=== PATIENT | male | born 1990 | race Caucasian/White ===

== ENCOUNTER 2016-10-30 20:22 | Emergency (ER) | payer SELFPAY ==
[~2016-10-30] VITALS: Ht 188 cm; Wt 78.0 kg
[2016-10-30 20:24] VITALS: BP 126/77; PULSE 106; RESP 15; TEMP 97.7; O2SAT 99
[2016-10-30] MEDS ORDERED: LIDOCAINE 1%/EPINEPHrine 1:100,000 SOLN 20 ML VIAL ONE (21:17)
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
[2016-10-30] MEDS ORDERED: LIDOCAINE 1%/EPINEPHrine 1:100,000 SOLN 20 ML VIAL INFIL ONE (22:00)
--- NOTE | 2016-10-30 22:24 | RADRPT ---
EXAM DATE/TIME: 10/30/2016 21:33 [facility] COMPARISON: No previous studies available for comparison. INDICATIONS : Right forearm laceration. Impact to glass. MEDICAL HISTORY : None. SURGICAL HISTORY : None. ENCOUNTER: Initial ACUITY: 1 day PAIN SCORE: 5/10 LOCATION: Right middle forearm FINDINGS: Focal soft tissue swelling is identified along the medial aspect of the midforearm. The underlying je[place] structures are intact. There is no evidence of radiopaque foreign body. CONCLUSION: Soft tissue swelling without evidence of acute bony abnormality or radiopaque foreign body. Kris Hughes MD on October 30, 2016 at 22:22 Board Certified Radiologist. This report was verified electronically.
== END 2016-10-30 22:45 | disposition home or self-care (01) ==
LOC: NEPB 20:22
DX: S51.811A Laceration without foreign body of right forearm, initial encounter (principal); F10.20 Alcohol dependence, uncomplicated; F17.210 Nicotine dependence, cigarettes, uncomplicated; F15.10 Other stimulant abuse, uncomplicated; F13.10 Sedative, hypnotic or anxiolytic abuse, uncomplicated
CPT/HCPCS: 12002; 73090

== ENCOUNTER 2016-11-04 15:56 | Inpatient (IN) | payer SELFPAY ==
[~2016-11-04] VITALS: Ht 188 cm; Wt 84.0 kg
[2016-11-04] VITALS (7 sets, daily range): BP systolic 123–155; BP diastolic 61–95; PULSE 86–127; RESP 16–24; TEMP 97.8–98.6; O2SAT 95–99
[2016-11-04] MEDS ORDERED: SODIUM CHLORIDE 0.9% FLUSH 5 ML FLUSH IVF PRN (16:15)
[2016-11-04] MEDS ORDERED: SODIUM CHLOR 0.9% 1000 ML INJ 1,000 ML IV ONE (16:15)
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
[2016-11-04 16:41] LABS: AUTOMATED NEUTROPHIL # 11.3 TH/MM3 (1.8-7.7); BASOPHIL % 0.3 % (0.0-2.0); EOSINOPHIL % 0.1 % (0.0-4.0); HEMATOCRIT 39.4 % (39.0-51.0); HEMO FLAGS DIFF FINAL; LYMPH % 4.3 % (9.0-44.0); LYMPHOCYTE # 0.5 TH/MM3 (1.0-4.8); MEAN CELL VOLUME 99.5 FL (80.0-100.0); MEAN CORPUSCULAR HEMOGLOBIN 34.3 PG (27.0-34.0); MEAN CORPUSCULAR HGB CONC 34.4 % (32.0-36.0); MONO % 4.6 % (0.0-8.0); NEUT % 90.7 % (16.0-70.0); PLATELET COUNT 118 TH/MM3 (150-450); RED BLOOD COUNT 3.96 MIL/MM3 (4.50-5.90); RED CELL DISTRIBUTION WIDTH 13.4 % (11.6-17.2); WHITE BLOOD COUNT 12.4 TH/MM3 (4.0-11.0)
[2016-11-04 17:03] LABS: AMPHETAMINE, URINE NEG (NEG); BARBITURATES, URINE NEG (NEG); COCAINE, URINE NEG (NEG)
[2016-11-04 17:03] LABS: ALT (GPT) 53 U/L (12-78); ANION GAP 21 MEQ/L (5-15); AST (GOT) 66 U/L (15-37); BICARBONATE 14.9 MEQ/L (21.0-32.0); BLOOD UREA NITROGEN 10 MG/DL (7-18); CHLORIDE 103 MEQ/L (98-107); GLOMERULAR FILTRATION RATE 67 ML/MIN (>89); POTASSIUM 3.7 MEQ/L (3.5-5.1); SODIUM (NA) 139 MEQ/L (136-145)
[2016-11-04 17:06] LABS: ALKALINE PHOSPHATASE 63 U/L (45-117); TOTAL BILIRUBIN ADULT 0.5 MG/DL (0.2-1.0)
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
[2016-11-04] MEDS ORDERED: NALOXONE HCL 0.4 MG/ML AMP IV PRN (17:45)
[2016-11-04] MEDS ORDERED: FLUMAZENIL 0.5 MG/5 ML VIAL IV PUSH PRN (17:45)
[2016-11-04] MEDS ORDERED: LORazepam 2 MG/ML VIAL IV PUSH PRN ×3 (17:45)
[2016-11-04] MEDS ORDERED: SODIUM CHLORIDE 0.9% FLUSH 5 ML FLUSH FLUSH PRN (17:45)
[2016-11-04] MEDS ORDERED: LORazepam 2 MG TAB PO PRN (17:45)
[2016-11-04 17:57] LABS: BLOOD GAS BASE EXCESS -3.5 mmol/L (-2-2); BLOOD GAS CARBOXYHEMOGLOBIN 1.7 % (0-4); BLOOD GAS HCO3 21 mmol/L (22-26); BLOOD GAS METHEMOGLOBIN 1.8 % (0-2); BLOOD GAS O2 HGB SATURATION 95 % (90-100); BLOOD GAS PCO2 37 mmHg (38-42); BLOOD GAS PO2 96 mmHG (61-120); BLOOD GAS TOTAL HGB 12.7 G/DL (12.0-16.0); CRITICAL VALUE NO; TEMP CORR TO 98.6
[2016-11-04 17:58] LABS: DRAW SITE RT RADIAL; FIO2 21 %; NUMBER OF ARTERIAL PUNCTURES 1; STAT YES; ULNAR PULSE PRESENT
[2016-11-04] MEDS: LORazepam 2 MG/ML VIAL IV PUSH PRN ×3 (18:25→22:17)
[2016-11-04] MEDS: SODIUM CHLOR 0.9% 1000 ML INJ 1,000 ML IV SCH (18:31)
--- NOTE | 2016-11-04 19:00 | HHI.HP ---
[facility] Service [facility] Primary Care Physician No Primary Care Physician Admission Diagnosis alcohol withdrawal seizures Diagnoses: Chief Complaint: Seizures, alcohol withdrawal Travel History International Travel<30 Days: No Contact w/Intl Traveler <30 Da: No Traveled to Known Affected Are: No History of Present Illness Patient is a 26-year-old male with no significant primary medical history except for previous trauma in 2015, head injury in 2016 secondary to skateboarding accident he incurred a left temporal lobe hematoma with no acute hemorrhage. He was brought in by ambulance after having seizures 2. EMS was called and when they arrived he was initially post ictal, then had a return to normal mental status, then had another seizure that was witnessed by EMS. They reported a generalized tonic-clonic seizure that lasted about 15 minutes. They administered 2 mg of IM Ativan followed by 4 mg of IV Ativan after an IV was established. Upon arrival to the ED patient was awake but drowsy. Patient seen. Mother at the bedside. Patient was reports to be at the convenience store buying alcohol with friends, when he felt sweaty, "antisocial " doesn't want to talk to anyone, then states he blacked out. States he woke up in an ambulance. He is unable to remember what happened in between. States his last drink was yesterday. Admits to drinking every day average 8-12 beers, but reports binge drinking often. Patient and mother states that he had prior seizure 2 months ago. He fell and was witnessed by his sister, when EMS was called the patient was already back to his normal self and did not go to the hospital. He has not seen her follow-up with anyone after that incident. Reports he has occasional tremors when he does not drink alcohol in the tremors would go away after drinking. Occasional nausea, vomiting also reported associated with alcohol use. Complaints of left-sided lower back pain, nonradiating, comes and goes, states very comfortable. Complaints of abdominal pain, discomfort on exam. Denies trauma to the head with a seizure today, mother states that somebody was able to hold his head to avoid hitting the ground. Denies SOB/ dyspnea. Denies chest pain, palpitations, headaches, dizziness. Denies fevers, chills. CT of the head showed normal examination. CBC WBC 12.4, hemoglobin 13.6, hematocrit 39.4, platelets 118, neutrophils 90.7% . Possibly reactive. CMP is remarkable for bicarbonate 14.9, anion gap 21. Lactic acidosis likely secondary to seizure Urine drug screen is positive for cannabinoids, negative for all other drugs tested. Alcohol level 4 Review of Systems Except as stated in HPI: all other systems reviewed are Neg Past Family Social History Past Medical History Trauma 2014 with multiple right-sided facial fractures involving orbit, zygomatic arches, and maxilla Head injury 2016 Left temporal hematoma Past Surgical History Facial fracture surgery Reported Medications None Allergies: Coded Allergies: No Known Allergies (Verified , 11/04/16) Active Ordered Medications Current Medications Medications (Trade) Dose Ordered Sig/Omer Route Start Time Stop Time Status Last Admin (NS 1000 ml Inj) 1,000 ml @ 100 mls/hr Q10H IV 11/04/16 17:43 (NS Flush) 2 ml UNSCH PRN FLUSH 11/04/16 17:45 (NS Flush) 2 ml BID FLUSH 11/04/16 21:00 (Narcan Inj) 0.4 mg UNSCH PRN IV 11/04/16 17:45 (Romazicon Inj) 0.2 mg Q1M PRN IV PUSH 11/04/16 17:45 (Ativan) 1 mg Q4H PRN PO 11/04/16 17:45 (Ativan Inj) 1 mg Q4H PRN IV PUSH 11/04/16 17:45 (Ativan) 2 mg Q2H PRN PO 11/04/16 17:45 (Ativan Inj) 2 mg Q2H PRN IV PUSH 11/04/16 17:45 (Ativan Inj) 2 mg Q1H PRN IV PUSH 11/04/16 17:45 (Ativan Inj) 2 mg Q15M PRN IV PUSH 11/04/16 17:45 Family History Biological father seizures secondary to cocaine use Social History Current alcohol use 8-12 beers, binge drinking Tobacco use one third pack per day, also current chewing tobacco 3 years Illicit drug use marijuana Physical Exam Vital Signs Vital Signs Date Time Temp Pulse Resp B/P Pulse Ox O2 Delivery O2 Flow Rate FiO2 11/04/16 16:46 95 16 123/61 97 Room Air 11/04/16 16:12 103 18 139/74 97 Room Air 11/04/16 16:02 97.8 100 16 139/74 95 Physical Exam GENERAL: This is a well-nourished, well-developed patient, anxious. SKIN: Multiple abrasions bilateral lower extremity, right lower extremity, left knee, left upper arm. Right upper arm with suture CDI. HEAD: Atraumatic. Normocephalic. No temporal or scalp tenderness. EYES: Pupils equal round and reactive. Extraocular motions intact. No scleral icterus. No injection or drainage. ENT: Nose without bleeding. Throat without erythema. Uvula midline. Airway patent. NECK: Trachea midline. No JVD or lymphadenopathy. Supple, nontender, no meningeal signs. CARDIOVASCULAR: Tachycardia without murmurs, gallops, or rubs. RESPIRATORY: Clear to auscultation. Breath sounds equal bilaterally. No wheezes , rales, or rhonchi. GASTROINTESTINAL: Abdomen soft, non-tender, nondistended. BS active x4 MUSCULOSKELETAL: Extremities without clubbing, cyanosis, or edema. No joint tenderness, effusion, or edema noted. DTR + NEUROLOGICAL: Awake and alert. Oriented 3. Anxious. Tremors are all upper extremity noted. Motor and sensory grossly within normal limits. Normal speech. Laboratory Laboratory Tests Test 11/04/16 11/04/16 11/04/16 16:25 16:35 17:47 White Blood Count 12.4 Red Blood Count 3.96 Hemoglobin 13.6 Hematocrit 39.4 Mean Corpuscular Volume 99.5 Mean Corpuscular Hemoglobin 34.3 Mean Corpuscular Hemoglobin 34.4 Concent Red Cell Distribution Width 13.4 Platelet Count 118 Mean Platelet Volume 9.6 Neutrophils (%) (Auto) 90.7 Lymphocytes (%) (Auto) 4.3 Monocytes (%) (Auto) 4.6 Eosinophils (%) (Auto) 0.1 Basophils (%) (Auto) 0.3 Neutrophils # (Auto) 11.3 Lymphocytes # (Auto) 0.5 Monocytes # (Auto) 0.6 Eosinophils # (Auto) 0.0 Basophils # (Auto) 0.0 CBC Comment DIFF FINAL Differential Comment Sodium Level 139 Potassium Level 3.7 Chloride Level 103 Carbon Dioxide Level 14.9 Anion Gap 21 Blood Urea Nitrogen 10 Creatinine 1.30 Estimat Glomerular Filtration 67 Rate Random Glucose 205 Calcium Level 8.2 Total Bilirubin 0.5 Aspartate Amino Transf 66 (AST/SGOT) Alanine Aminotransferase 53 (ALT/SGPT) Alkaline Phosphatase 63 Total Protein 7.4 Albumin 4.0 Ethyl Alcohol Level 4 Urine Opiates Screen NEG Urine Barbiturates Screen NEG Urine Amphetamines Screen NEG Urine Benzodiazepines Screen NEG Urine Cocaine Screen NEG Urine Cannabinoids Screen POS Blood Gas Puncture Site RT RADIAL Blood Gas Patient Temperature 98.6 Blood Gas HCO3 21 Blood Gas Base Excess -3.5 Blood Gas Oxygen Saturation 95 Arterial Blood pH 7.37 Arterial Blood Partial 37 Pressure CO2 Arterial Blood Partial 96 Pressure O2 Arterial Blood Oxygen Content 17.0 Arterial Blood 1.7 Carboxyhemoglobin Arterial Blood Methemoglobin 1.8 Blood Gas Hemoglobin 12.7 Blood Gas Inspired Oxygen 21 Result Diagram: 11/04/16 1625 11/04/16 1625 Imaging Last Impressions Head CT 11/04/16 0000 Signed Impressions: Service Date/Time: Friday, November 04, 2016 16:54 - CONCLUSION: Normal examination. Castillo Caro MD Assessment and Plan Problem List: (1) Alcohol withdrawal seizure ICD Code: F10.239 Status: Acute (2) Laceration of right forearm without foreign body ICD Code: S51.811A Status: Acute (3) Tobacco abuse ICD Code: Z72.0 Status: Chronic (4) Alcohol abuse ICD Code: F10.10 Status: Chronic (5) Alcohol use disorder ICD Code: F10.99 Status: Acute Assessment and Plan Patient is a 26-year-old male with no significant primary medical history except for previous trauma in 2015 with multiple facial fractures, head injury in 2016 secondary to skateboarding accident he incurred a left temporal lobe hematoma with no acute hemorrhage. He was brought in by ambulance after having seizures 2. EMS was called and when they arrived he was initially post ictal, then had a return to normal mental status, then had another seizure that was witnessed by EMS. They reported a generalized tonic-clonic seizure that lasted about 15 minutes. They administered 2 mg of IM Ativan followed by 4 mg of IV Ativan after an IV was established. Upon arrival to the ED patient was awake but drowsy. Seizures - possibly secondary to alcohol withdrawal - Neurochecks - Seizure precaution - Consult neurology input appreciated - EEG ordered - Ativan when necessary Tachycardia - also related to alcohol withdrawal. Continue with [facility]WA protocol Alcohol abuse, dependence - Patient counseled. Discussed risk of continued alcohol use. - CIWA protocol - Thiamine and folate - Monitor for withdrawals Tobacco abuse - Patient counseled. - Nicotine patch Substance abuse - check hepatitis panel Left back pain - X-ray pelvis ordered Lactic acidosis, anion gap 21 - Check lactic acid, CPK, hemoglobin A1c, UA - Recheck labs CBC CMP tomorrow Case management - consult for EtOH abuse plan for discharge, possible placement for rehabilitation treatment DVT prop SCDs GI prop pantoprazole Written by Zoey Loyd, acting as scribe for Dr. Torres on 11/04/16 at 18:37. The documentation accurately reflects the work performed [id number] by me on at 18:37. Code Status Full code Discussed Condition With Patient, mother Rebekah, nursing Physician Certification 2 Midnight Certification Type: Admission for Inpatient Services Order for Inpatient Services The services are ordered in accordance with Medicare regulations or non- Medicare payer requirements, as applicable. In the case of services not specified as inpatient-only, they are appropriately provided as inpatient services in accordance with the 2-midnight benchmark. Estimated LOS (days): 2 days is the estimated time the patient will need to remain in the hospital, assuming treatment plan goals are met and no additional complications. Post-Hospital Plan: Not yet determined Problem Qualifiers (1) Alcohol withdrawal seizure: Qualified Code: F10.239 - Alcohol withdrawal seizure, with unspecified complication Zoey Davis Nov 04, 2016 18:59 Robi Torres MD Nov 04, 2016 22:28
--- NOTE | 2016-11-04 19:18 | RADRPT ---
EXAM DATE/TIME: 11/04/2016 18:58 [facility] COMPARISON: PELVIS AP ONLY, February 07, 2015, 21:41. INDICATIONS : Generalized Pelvis pain after fall. MEDICAL HISTORY : Head trauma, ETOH. SURGICAL HISTORY : facial. ENCOUNTER: Initial ACUITY: 1 day PAIN SCORE: 5/10 LOCATION: Pelvis. FINDINGS: A single frontal view of the pelvis demonstrates no evidence of fracture. The bony pelvic ring is in tact. Bony mineralization is normal. The soft tissues are intact. CONCLUSION: No acute disease. Castillo Caro MD on November 04, 2016 at 19:17 Board Certified Radiologist. This report was verified electronically.
[2016-11-04] MEDS ORDERED: IBUPROFEN 600 MG TAB PO ONE (19:30)
[2016-11-04 19:42] LABS: CKMB 1.5 NG/ML (0.5-3.6)
[2016-11-04] MEDS ORDERED: THIAMINE HCL 100 MG TAB PO ONE (20:00)
[2016-11-04] MEDS: PANTOPRAZOLE SOD 40 MG DELAYED RELEASE TAB PO SCH (20:10)
[2016-11-04 20:15] LABS: BLOOD, URINE MOD (NEG); GLUCOSE,URINE 300 mg/dL (NEG); KETONE, URINE 10 mg/dL (NEG); NITRITE,URINE NEG (NEG); PH, URINE 5.5 (5.0-8.5); URINE COLOR LIGHT-YELLOW (YELLW/STRAW)
[2016-11-04 20:22] LABS: COMMENT (UR) CULT NOT INDICATED; CULTURE IF INDICATED CULT NOT INDICATED
[2016-11-04 20:23] LABS: BACTERIA, URINE RARE /hpf; RED BLOOD CELL CAST, URINE 20 /lpf; WHITE BLOOD CELL CAST, URINE 1 /lpf
[2016-11-04] MEDS: SODIUM CHLORIDE 0.9% FLUSH 5 ML FLUSH FLUSH SCH (21:00)
[2016-11-05] VITALS (7 sets, daily range): BP systolic 84–137; BP diastolic 63–88; PULSE 54–85; RESP 16–20; TEMP 96.8–98.9; O2SAT 95–98
[2016-11-05] MEDS: SODIUM CHLOR 0.9% 1000 ML INJ 1,000 ML IV SCH ×2 (03:43→11:01)
[2016-11-05] MEDS: THIAMINE HCL 100 MG TAB PO SCH (08:26)
[2016-11-05] MEDS: PANTOPRAZOLE SOD 40 MG DELAYED RELEASE TAB PO SCH (08:26)
[2016-11-05] MEDS: SODIUM CHLORIDE 0.9% FLUSH 5 ML FLUSH FLUSH SCH ×2 (08:26→20:47)
[2016-11-05 10:06] LABS: AUTOMATED NEUTROPHIL # 5.8 TH/MM3 (1.8-7.7); BASOPHIL % 0.1 % (0.0-2.0); EOSINOPHIL % 0.2 % (0.0-4.0); HEMATOCRIT 37.1 % (39.0-51.0); LYMPH % 5.3 % (9.0-44.0); LYMPHOCYTE # 0.4 TH/MM3 (1.0-4.8); MEAN CELL VOLUME 98.5 FL (80.0-100.0); MEAN CORPUSCULAR HEMOGLOBIN 33.9 PG (27.0-34.0); MEAN CORPUSCULAR HGB CONC 34.4 % (32.0-36.0); MONO % 11.7 % (0.0-8.0); NEUT % 82.7 % (16.0-70.0); PLATELET COUNT 84 TH/MM3 (150-450); RED BLOOD COUNT 3.76 MIL/MM3 (4.50-5.90); RED CELL DISTRIBUTION WIDTH 13.5 % (11.6-17.2)
[2016-11-05 10:13] LABS: HEMO FLAGS AUTO DIFF
[2016-11-05 10:29] LABS: ANION GAP 13 MEQ/L (5-15); AST (GOT) 102 U/L (15-37); BICARBONATE 22.3 MEQ/L (21.0-32.0); BLOOD UREA NITROGEN 6 MG/DL (7-18); CHLORIDE 104 MEQ/L (98-107); GLOMERULAR FILTRATION RATE 75 ML/MIN (>89); POTASSIUM 3.3 MEQ/L (3.5-5.1); SODIUM (NA) 139 MEQ/L (136-145)
[2016-11-05 10:33] LABS: ALKALINE PHOSPHATASE 54 U/L (45-117); ALT (GPT) 51 U/L (12-78); TOTAL BILIRUBIN ADULT 1.1 MG/DL (0.2-1.0)
[2016-11-05 10:42] LABS: PLATELET ESTIMATE SMEAR LOW (NORMAL); PLATELET MORPHOLOGY NORMAL (NORMAL); SCAN/DIFF AUTO DIFF CONFIRMED
[2016-11-05] MEDS ORDERED: POTASSIUM CHLORIDE 10 MEQ CONTROLLED RELEASE TAB PO ONE (10:45)
[2016-11-05] MEDS ORDERED: MAGNESIUM SULFATE 1 GM PREMIX 100 ML IV ONE (10:45)
[2016-11-05] MEDS: levETIRAcetam 500 MG TAB PO SCH ×2 (11:25→20:45)
[2016-11-05] MEDS ORDERED: LEVE500 PO (11:45)
[2016-11-05] MEDS ORDERED: VITA100T2 PO (11:45)
[2016-11-05] MEDS ORDERED: CHLO25CA2 PO (11:45)
--- NOTE | 2016-11-05 12:14 | MB ---
cc: NADINE WANG M.D. DATE OF CONSULTATION: 11/05/2016 REASON FOR CONSULTATION Seizure. HISTORY OF PRESENT ILLNESS Mr. Sampson is a 26-year-old male who states he has a history of head trauma after falling off his skateboard several months ago resulting in a cerebral hemorrhage, who now presents with new onset seizures. In June of 2016 he states he was skateboarding down a bridge and fell forward striking his head. He presented to the emergency room. He had a 1.7 cm hemorrhagic contusion left superior temporal lobe with minimal subarachnoid hemorrhagic component. He states he did not require any neurosurgical intervention. The patient states he does drink alcohol on a daily basis. Yesterday apparently he was drinking alcohol in the morning. He went to the store, felt funny and then had a grand mal seizure in the parking lot of the store. [facility] was called. Apparently, en route to the hospital he had another seizure in the ambulance. He feels back to his baseline state at the present time. He states he has been trying to reduce his alcohol consumption. PAST MEDICAL HISTORY Otherwise unremarkable. No history of meningitis or encephalitis. MEDICATIONS Medications at home: None. Current medications are: 1. Thiamine 100 mg daily. 2. Protonix 40 mg daily. 3. Librium as needed. 4. Narcan p.r.n. 5. Ativan p.r.n. seizure. NEUROLOGIC EXAMINATION VITAL SIGNS: Blood pressure is 134/73, pulse 64, respiratory rate is 18, temperature 97 degrees. Higher cortical functions at this time are normal. Cranial nerves II-XII are normal in detail. Motor exam shows 5/5 strength of all groups in both upper and lower extremities. There is no drift. Fine motor skills within normal limits. Reflexes are symmetric. IMAGING STUDIES CT scan of the brain is normal. LABORATORY DATA The white count is 7000, hemoglobin 12.8, hematocrit 37%, platelets 84,000. Sodium is 139, potassium 3.3, chloride 104, CO2 22.3, the BUN is 6, creatinine 1.18, GFR is 75, glucose 108, calcium is 8.5, AST is 102, ALT 51. Alcohol level was 4. Urine tox screen positive for cannabis. PT 11, INR 1.0. Urinalysis pH is 5.5, specific gravity 1.014, protein is 30, glucose is 300, ketones 10, leukocyte esterase negative. IMPRESSION Generalized tonic-clonic seizure x2. I suspect related to alcohol intake but also possibly related to his hemorrhagic contusion he had back in June. RECOMMENDATION Because he has a history of hemorrhagic contusion which does predispose to seizures, I would recommend starting him on Keppra 500 mg b.i.d. We will also obtain an MRI of the brain, EEG, place him under seizure precautions. I did tell him it was very important to abstain from any alcohol. His mother asked that we consult social insurance adviser to see if there is any type of program that may be of benefit for the patient to withdraw from alcohol. ADDENDUM The patient should not drive for at least 6 months of being seizure-free. MD YOMAIRA Dawkins/MONICA /10:59 AM /12:03 PM
[2016-11-05 12:27] LABS: MAGNESIUM 2.2 MG/DL (1.5-2.5)
[2016-11-05 12:52] LABS: INDIRECT BILIRUBIN 0.8 MG/DL (0.0-0.8); TOTAL BILIRUBIN ADULT 1.1 MG/DL (0.2-1.0)
--- NOTE | 2016-11-05 12:53 | MG ---
cc: NADINE WANG Sex: M Test #[id number] DATE OF STUDY: 11/05/2016 TECHNIQUE 17 channel EEG. DESCRIPTION Background rhythm is a symmetrical alpha rhythm frequency is 8-9 Hz, amplitude is 10-20 microvolts. There is fairly prominent beta activity probably medication effect. Occasional muscle artifact an occasional eye movement artifact is identified. There are no lateralizing features. There are no epileptiform discharges present. Photic stimulation was done in a stepwise fashion with a normal driving response. Hyperventilation was done with no change in background rhythm. INTERPRETATION Normal EEG. MD YOMAIRA Dawkins/MERRILL /12:44 PM /12:46 PM
[2016-11-05 13:07] LABS: CKMB 10.6 NG/ML (0.5-3.6)
[2016-11-05] MEDS ORDERED: GADODIAMIDE PF 287 MG/ML 20 ML VIAL (for RAD MRI) IV ONE (13:20)
--- NOTE | 2016-11-05 13:34 | RADRPT ---
EXAM DATE/TIME: 11/05/2016 13:02 [facility] COMPARISON: CT BRAIN W/O CONTRAST, November 04, 2016, 16:54. INDICATIONS : Seizures. CONTRAST: 16 cc Omniscan (gadodiamide) IV MEDICAL HISTORY : Alcohol withdrawl SURGICAL HISTORY : Facial reconstruction surgery. ENCOUNTER: Initial ACUITY: 1 day PAIN SCORE: 0/10 LOCATION: cranial TECHNIQUE: Multiplanar, multisequence MRI of the brain was performed both prior to and following the administrat ion of paramagnetic contrast. FINDINGS: CEREBRUM: The ventricles are normal. Hippocampi are symmetric. No evidence of midline shift, mass lesion, hemo rrhage or acute infarction. No extraaxial fluid collections are seen. The pituitary gland and supra sellar cistern are normal in configuration. WHITE MATTER: No significant signal abnormalities are seen in the white matter. POSTERIOR FOSSA: The cerebellum and brainstem demonstrate no abnormality. The 4th ventricle is midline. The cerebello pontine angle is unremarkable. The cerebellar tonsils are normal in position. DIFFUSION IMAGING: No focal areas of restricted diffusion are seen. No evidence of acute infarction. EXTRACRANIAL: The visualized portions of the orbits and paranasal sinuses are unremarkable. POST-CONTRAST: No abnormal areas of parenchymal or dural enhancement. No evidence of blood-brain barrier breakdown. CONCLUSION: Negative brain MRI with and without intravenous contrast. No abnormality is identified to explain the patient's seizures. Indra Parsons MD on November 05, 2016 at 13:29 Board Certified Radiologist. This report was verified electronically.
--- NOTE | 2016-11-05 14:25 | EKG ---
Date Performed: 11/04/2016 Time Performed: 16:24:01 PTAGE: 26 years EKG: Sinus rhythm NORMAL ECG Compared to prior tracing no significant change PREVIOUS TRACING : 07/24/2014 03.29 DOCTOR: Cory Carrington Interpretating Date/Time 11/05/2016 14:24:41
[2016-11-05] MEDS: LORazepam 1 MG TAB PO PRN ×2 (16:24→20:45)
[2016-11-05 16:35] LABS: CKMB 9.4 NG/ML (0.5-3.6)
--- NOTE | 2016-11-05 17:23 | HHI.PR ---
Subjective Remarks Patient seen twice today. Initially around 11 AM, subsequently around 2 PM. Patient says he feels back to normal. No more tremors. Patient denies any chest Rubs breath. Objective Vital Signs Date Time Temp Pulse Resp B/P Pulse Ox O2 Delivery O2 Flow Rate FiO2 11/05/16 16:15 97.7 69 16 84/ 98 11/05/16 12:23 96.8 72 18 125/72 98 11/05/16 08:05 97.6 64 18 134/73 98 11/05/16 08:00 63 11/05/16 04:00 97.9 85 20 137/88 98 11/05/16 00:00 98.9 64 18 133/74 95 11/04/16 23:30 86 11/04/16 21:30 98.6 127 24 139/95 95 11/04/16 21:23 96 18 138/80 99 Room Air 11/04/16 20:23 18 11/04/16 19:06 97 Room Air 11/04/16 19:06 101 18 155/95 97 Room Air I/O 11/04/16 11/04/16 11/04/16 11/05/16 11/05/16 11/05/16 07:00 15:00 23:00 07:00 15:00 23:00 Intake Total 120 ml Balance 120 ml Intake Oral 120 ml # Voids 4 2 Result Diagram: 11/05/1691911/05/1620 Objective Remarks GENERAL: Patient sitting up in bed. Appears couple. Alert and oriented 3. SKIN: Warm and dry. HEAD: Normocephalic. EYES: No scleral icterus. No injection or drainage. NECK: Supple, trachea midline. No JVD. CARDIOVASCULAR: Regular rate and rhythm without murmurs, gallops, or rubs. RESPIRATORY: Breath sounds equal bilaterally. No accessory muscle use. GASTROINTESTINAL: Abdomen soft, non-tender, nondistended. MUSCULOSKELETAL: No cyanosis, or edema. BACK: Nontender without obvious deformity. No CVA tenderness. A/P Assessment and Plan Patient is a 26-year-old male with no significant primary medical history except for previous trauma in 2015 with multiple facial fractures, head injury in 2016 secondary to skateboarding accident he incurred a left temporal lobe hematoma with no acute hemorrhage. He was brought in by ambulance after having seizures 2. EMS was called and when they arrived he was initially post ictal, then had a return to normal mental status, then had another seizure that was witnessed by EMS. They reported a generalized tonic-clonic seizure that lasted about 15 minutes. They administered 2 mg of IM Ativan followed by 4 mg of IV Ativan after an IV was established. Upon arrival to the ED patient was awake but drowsy. //Seizures - possibly secondary to alcohol withdrawal - Neurochecks - Seizure precaution - Consult neurology input appreciated - EEG negative. MRI negative. -Continue Keppra, with Librium taper. //Tachycardia -improved with Librium. //Alcohol abuse, dependence - Patient counseled again. Discussed risk of continued alcohol use. - [facility] protocol - Thiamine and folate -11/05. Much improved. Continue Librium. //Tobacco abuse - Patient counseled. - Continue Nicotine patch //Substance abuse - check hepatitis panelstill pending. //Left back pain - X-ray pelvis no acute findings. Ibuprofen if necessary. //Metabolic acidosis, anion gap 21 on admission. Resolved. -Likely in postictal state, however subsequent lactic acid normal. -CK found to be subsequently 3400. //CK elevation 3400. Increased from admission. -Repeat today only slightly better. -Renal function stable We'll continue bicarbonate fluids, recheck tomorrow. //Hypokalemia. Acute. Mild. Replaced. //Thrombocytopenia. Likely secondary to chronic alcoholic hepatitis. No bleeding. We'll continue to monitor. Will need follow-up as outpatient. Again. Stop drinking. //Case management - consult for EtOH abuse plan for discharge, possible placement for rehabilitation treatment. Appreciate assistance. Case management has provided patient with information DVT prop SCDs GI prop pantoprazole Discharge Planning Can likely discharge home tomorrow . He has information for follow-up with dave Jiang provided by case management. If CK improved tomorrow, can discharge home Robi Torres MD Nov 05, 2016 17:23
[2016-11-05] MEDS: POTASSIUM CHLORIDE IV SCH ×3 (18:08)
[2016-11-05] MEDS: SODIUM BICARBONATE IV SCH ×3 (18:08)
[2016-11-05] MEDS: [UNRECOGNIZED DRUG - OTHER] IV SCH ×3 (18:08)
[2016-11-05] MEDS: DEXTROSE 5% IV SCH ×3 (18:08)
[2016-11-06] VITALS (7 sets, daily range): BP systolic 126–145; BP diastolic 70–81; PULSE 62–78; RESP 20–22; TEMP 97.5–98.2; O2SAT 97–99
[2016-11-06] MEDS: LORazepam 1 MG TAB PO PRN ×3 (02:24→20:22)
[2016-11-06] MEDS: DEXTROSE 5% IV SCH ×12 (03:50→20:52)
[2016-11-06] MEDS: SODIUM BICARBONATE IV SCH ×12 (03:50→20:52)
[2016-11-06] MEDS: [UNRECOGNIZED DRUG - OTHER] IV SCH ×12 (03:50→20:52)
[2016-11-06] MEDS: POTASSIUM CHLORIDE IV SCH ×12 (03:50→20:52)
[2016-11-06 08:43] LABS: AUTOMATED NEUTROPHIL # 4.2 TH/MM3 (1.8-7.7); BASOPHIL % 0.2 % (0.0-2.0); EOSINOPHIL % 0.3 % (0.0-4.0); HEMATOCRIT 36.9 % (39.0-51.0); LYMPH % 11.9 % (9.0-44.0); LYMPHOCYTE # 0.7 TH/MM3 (1.0-4.8); MEAN CELL VOLUME 97.3 FL (80.0-100.0); MEAN CORPUSCULAR HEMOGLOBIN 34.2 PG (27.0-34.0); MEAN CORPUSCULAR HGB CONC 35.2 % (32.0-36.0); MONO % 13.8 % (0.0-8.0); NEUT % 73.8 % (16.0-70.0); PLATELET COUNT 81 TH/MM3 (150-450); RED BLOOD COUNT 3.79 MIL/MM3 (4.50-5.90); RED CELL DISTRIBUTION WIDTH 13.6 % (11.6-17.2); WHITE BLOOD COUNT 5.6 TH/MM3 (4.0-11.0)
[2016-11-06 08:45] LABS: HEMO FLAGS AUTO DIFF
[2016-11-06 08:46] LABS: HEMOGLOBIN A1b 0.7 %; HEMOGLOBIN Ao 86.8 %; HEMOGLOBIN F 0.8 %; HEMOGLOBIN LA1C 2.2 %; HEMOGLOBIN P3 3.2 %
[2016-11-06] MEDS: SODIUM CHLORIDE 0.9% FLUSH 5 ML FLUSH FLUSH SCH ×2 (09:00→20:15)
[2016-11-06] MEDS: THIAMINE HCL 100 MG TAB PO SCH (09:01)
[2016-11-06] MEDS: PANTOPRAZOLE SOD 40 MG DELAYED RELEASE TAB PO SCH (09:01)
[2016-11-06] MEDS: levETIRAcetam 500 MG TAB PO SCH ×2 (09:01→20:17)
[2016-11-06 09:20] LABS: PLATELET ESTIMATE SMEAR LOW (NORMAL); PLATELET MORPHOLOGY NORMAL (NORMAL); SCAN/DIFF AUTO DIFF CONFIRMED
[2016-11-06 09:29] LABS: BICARBONATE 29.4 MEQ/L (21.0-32.0); MAGNESIUM 2.3 MG/DL (1.5-2.5); POTASSIUM 3.3 MEQ/L (3.5-5.1)
[2016-11-06 10:07] LABS: CKMB 2.8 NG/ML (0.5-3.6)
[2016-11-06] MEDS ORDERED: SODIUM CHLOR 0.9% 1000 ML INJ 1,000 ML IV ONE (11:00)
[2016-11-06] MEDS ORDERED: POTASSIUM PHOSPHATE INJ 15 MMOL in SODIUM CHLORIDE 0.9% INJ 150 ML IV ONE (12:00)
[2016-11-06] MEDS ORDERED: POTASSIUM PHOSPHATE/SODIUM PHOSPHATE 250 MG TAB PO ONE (15:00)
[2016-11-06] MEDS ORDERED: POTASSIUM CHLORIDE 10 MEQ CONTROLLED RELEASE TAB PO ONE (15:00)
--- NOTE | 2016-11-06 18:50 | HHI.PR ---
Review/Management Diagnosis seizure related to ETOH but also history of temporal lobe contusion in the past rhabdomyolysis from sz. Plan continue keppra d/c etoh ok to dc home from neuro standpoint when ok with medicine service/ no driving for 6 months follow up with me 2 week after discharge. Diagnosis/Plan: Subjective Subjective Comments No acute events reported No sz Active Medications Current Medications Medications (Trade) Dose Ordered Sig/Omer Route Start Time Stop Time Status Last Admin (NS Flush) 2 ml UNSCH PRN FLUSH 11/04/16 17:45 (NS Flush) 2 ml BID FLUSH 11/04/16 21:00 (Narcan Inj) 0.4 mg UNSCH PRN IV 11/04/16 17:45 (Romazicon Inj) 0.2 mg Q1M PRN IV PUSH 11/04/16 17:45 (Ativan) 1 mg Q4H PRN PO 11/04/16 17:45 11/06/16 06:35 (Ativan Inj) 1 mg Q4H PRN IV PUSH 11/04/16 17:45 (Ativan) 2 mg Q2H PRN PO 11/04/16 17:45 (Ativan Inj) 2 mg Q2H PRN IV PUSH 11/04/16 17:45 11/04/16 22:17 (Ativan Inj) 2 mg Q1H PRN IV PUSH 11/04/16 17:45 (Ativan Inj) 2 mg Q15M PRN IV PUSH 11/04/16 17:45 (Vitamin B1) 100 mg DAILY PO 11/05/16 09:00 11/06/16 09:01 (Librium) 25 mg TID PRN PO 11/04/16 18:45 (Protonix) 40 mg DAILY PO 11/04/16 20:00 11/06/16 09:01 Levetriacetam 500 mg 500 mg Q12HR PO 11/05/16 11:00 11/06/16 09:01 (Sodium Bicarbonate 8.4% Inj/KCl Inj/D5W 1000 ml Inj) 1,165 ml @ 250 mls/hr Q4H40M IV 11/05/16 18:00 11/06/16 16:26 Allergies Allergies Coded Allergies No Known Allergies (Verified11/04/16) Exam I&O / VS 11/05/16 11/05/16 11/06/16 15:00 23:00 07:00 Intake Total 120 ml 2316 ml Balance 120 ml 2316 ml Intake Oral 120 ml IV Total 2316 ml # Voids 2 4 2 Vital Signs Date Time Temp Pulse Resp B/P Pulse Ox O2 Delivery O2 Flow Rate FiO2 11/06/16 16:20 98.2 74 22 131/71 99 11/06/16 12:37 97.6 76 22 137/70 98 11/06/16 08:37 98.0 75 22 126/77 98 11/06/16 04:00 98.0 62 20 145/80 99 11/06/16 00:00 97.5 69 20 135/80 97 11/05/16 20:00 98.0 54 20 117/63 97 Exam Comments alert speech normal cn 2-12 normal motor 5/5 bue and ble Objective Radiology Results mri brain normal Micro and Labs Laboratory Tests Test 11/06/16 11/06/16 08:18 14:43 White Blood Count 5.6 Red Blood Count 3.79 Hemoglobin 13.0 Hematocrit 36.9 Mean Corpuscular Volume 97.3 Mean Corpuscular Hemoglobin 34.2 Mean Corpuscular Hemoglobin 35.2 Concent Red Cell Distribution Width 13.6 Platelet Count 81 Mean Platelet Volume 9.0 Neutrophils (%) (Auto) 73.8 Lymphocytes (%) (Auto) 11.9 Monocytes (%) (Auto) 13.8 Eosinophils (%) (Auto) 0.3 Basophils (%) (Auto) 0.2 Neutrophils # (Auto) 4.2 Lymphocytes # (Auto) 0.7 Monocytes # (Auto) 0.8 Eosinophils # (Auto) 0.0 Basophils # (Auto) 0.0 CBC Comment AUTO DIFF Differential Comment AUTO DIFF CONFIRMED Platelet Estimate LOW Platelet Morphology Comment NORMAL Sodium Level 138 Potassium Level 3.3 Chloride Level 101 Carbon Dioxide Level 29.4 Anion Gap 8 Blood Urea Nitrogen 3 Creatinine 0.92 Estimat Glomerular Filtration 100 Rate Random Glucose 111 Calcium Level 8.5 Phosphorus Level 2.0 Magnesium Level 2.3 Total Creatine Kinase 3453 6856 Creatine Kinase MB 2.8 4.0 Creatine Kinase MB % 0.1 0.1 Albumin 3.3 Nikhil Cervantes PhD Nov 06, 2016 18:50
[2016-11-06] MEDS: MELATONIN 5 MG TAB PO PRN (21:52)
--- NOTE | 2016-11-06 23:35 | HHI.PR ---
Subjective Remarks patient seen this morning around 11 AM. Says he feels well. Denies any pain. Objective Vital Signs Date Time Temp Pulse Resp B/P Pulse Ox O2 Delivery O2 Flow Rate FiO2 11/06/16 20:00 97.7 69 20 133/81 98 11/06/16 19:02 78 11/06/16 16:20 98.2 74 22 131/71 99 11/06/16 12:37 97.6 76 22 137/70 98 11/06/16 08:37 98.0 75 22 126/77 98 11/06/16 04:00 98.0 62 20 145/80 99 11/06/16 00:00 97.5 69 20 135/80 97 I/O 11/05/16 11/05/16 11/05/16 11/06/16 11/06/16 11/06/16 07:00 15:00 23:00 07:00 15:00 23:00 Intake Total 120 ml 2316 ml 1668 ml Balance 120 ml 2316 ml 1668 ml Intake Oral 120 ml IV Total 2316 ml 1668 ml # Voids 4 2 4 2 10 # Bowel Movements 2 Result Diagram: 11/06/1618 11/06/16 0818 Objective Remarks GENERAL: Patient sitting up in bed. Appears Comfortable Alert and oriented 3.no appreciable change. SKIN: Warm and dry. HEAD: Normocephalic. EYES: No scleral icterus. No injection or drainage. NECK: Supple, trachea midline. No JVD. CARDIOVASCULAR: Regular rate and rhythm without murmurs, gallops, or rubs. RESPIRATORY: Breath sounds equal bilaterally. No accessory muscle use. GASTROINTESTINAL: Abdomen soft, non-tender, nondistended. MUSCULOSKELETAL: No cyanosis, or edema. BACK: Nontender without obvious deformity. No CVA tenderness. A/P Assessment and Plan Patient is a 26-year-old male with no significant primary medical history except for previous trauma in 2015 with multiple facial fractures, head injury in 2016 secondary to skateboarding accident he incurred a left temporal lobe hematoma with no acute hemorrhage. He was brought in by ambulance after having seizures 2. EMS was called and when they arrived he was initially post ictal, then had a return to normal mental status, then had another seizure that was witnessed by EMS. They reported a generalized tonic-clonic seizure that lasted about 15 minutes. They administered 2 mg of IM Ativan followed by 4 mg of IV Ativan after an IV was established. Upon arrival to the ED patient was awake but drowsy. //Seizures - possibly secondary to alcohol withdrawal - Neurochecks - Seizure precaution - Consult neurology input appreciated - EEG negative. MRI negative. -Continue Keppra, with Librium taper. //Tachycardia -improved with Librium. //Alcohol abuse, dependence - Patient counseled again. Discussed risk of continued alcohol use. - [facility] protocol - Thiamine and folate -11/05. Much improved. Continue Librium. //Tobacco abuse - Patient counseled. - Continue Nicotine patch //Substance abuse - check hepatitis panelstill pending. //Left back pain - X-ray pelvis no acute findings. Ibuprofen if necessary. //Metabolic acidosis, anion gap 21 on admission. Resolved. -Likely in postictal state, however subsequent lactic acid normal. -CK found to be subsequently 3400. //CK elevation over 6000. Increased from admission. -11/06. Increase IV fluids to 250 mL per hour. Continue to monitor. discharge if decreases below 5000. //Hypokalemia. Acute. Mild. Replaced. //Thrombocytopenia. Likely secondary to chronic alcoholic hepatitis. No bleeding. We'll continue to monitor. Will need follow-up as outpatient. Again. Stop drinking. -11/06. Stable. No bleeding. Monitor. //Case management - consult for EtOH abuse plan for discharge, possible placement for rehabilitation treatment. Appreciate assistance. Case management has provided patient with information DVT prop SCDs GI prop pantoprazole Discharge Planning Can likely discharge home tomorrow if CK decreases below 5000. . He has information for follow-up with dave Jiang provided by case management. Robi Torres MD Nov 06, 2016 23:35
[2016-11-07] VITALS: BP 137/77; PULSE 64; RESP 20; TEMP 97.6; O2SAT 98
[2016-11-07] MEDS: LORazepam 1 MG TAB PO PRN (00:47)
[2016-11-07] MEDS: SODIUM BICARBONATE IV SCH ×18 (01:38→23:27)
[2016-11-07] MEDS: POTASSIUM CHLORIDE IV SCH ×18 (01:38→23:27)
[2016-11-07] MEDS: DEXTROSE 5% IV SCH ×18 (01:38→23:27)
[2016-11-07] MEDS: [UNRECOGNIZED DRUG - OTHER] IV SCH ×18 (01:38→23:27)
[2016-11-07 04:00] VITALS: BP 116/63; PULSE 63; RESP 20; TEMP 97.8; O2SAT 100
[2016-11-07] MEDS: PANTOPRAZOLE SOD 40 MG DELAYED RELEASE TAB PO SCH (08:08)
[2016-11-07] MEDS: levETIRAcetam 500 MG TAB PO SCH ×2 (08:08→20:58)
[2016-11-07] MEDS: SODIUM CHLORIDE 0.9% FLUSH 5 ML FLUSH FLUSH SCH ×2 (08:08→20:58)
[2016-11-07] MEDS: THIAMINE HCL 100 MG TAB PO SCH (08:08)
[2016-11-07 08:12] VITALS: BP 132/86; PULSE 85; RESP 20; TEMP 97.1; O2SAT 99
[2016-11-07 10:42] LABS: AUTOMATED NEUTROPHIL # 3.8 TH/MM3 (1.8-7.7); BASOPHIL % 0.3 % (0.0-2.0); EOSINOPHIL # 0.1 TH/MM3 (0-0.4); HEMATOCRIT 38.7 % (39.0-51.0); HEMO FLAGS DIFF FINAL; LYMPH % 11.4 % (9.0-44.0); LYMPHOCYTE # 0.6 TH/MM3 (1.0-4.8); MEAN CELL VOLUME 97.1 FL (80.0-100.0); MEAN CORPUSCULAR HEMOGLOBIN 33.8 PG (27.0-34.0); MEAN CORPUSCULAR HGB CONC 34.8 % (32.0-36.0); MONO % 14.3 % (0.0-8.0); PLATELET COUNT 101 TH/MM3 (150-450); RED BLOOD COUNT 3.98 MIL/MM3 (4.50-5.90); RED CELL DISTRIBUTION WIDTH 13.2 % (11.6-17.2); WHITE BLOOD COUNT 5.3 TH/MM3 (4.0-11.0)
[2016-11-07 11:06] LABS: BICARBONATE 31.3 MEQ/L (21.0-32.0); POTASSIUM 3.7 MEQ/L (3.5-5.1)
[2016-11-07 12:06] VITALS: BP 116/69; PULSE 83; RESP 20; TEMP 98.3; O2SAT 100
[2016-11-07 12:56] LABS: CKMB 5.5 NG/ML (0.5-3.6)
[2016-11-07] MEDS: chlordiazePOXIDE 25 MG CAP PO PRN (14:40)
[2016-11-07 16:05] VITALS: BP 125/82; PULSE 51; RESP 20; TEMP 97.1; O2SAT 100
[2016-11-07 18:30] VITALS: PULSE 54
[2016-11-07] MEDS: MELATONIN 5 MG TAB PO PRN (20:58)
--- NOTE | 2016-11-07 23:45 | HHI.PR ---
Subjective Remarks patient seen today around noon, and again around 2 PM. Says he feels well. Denies any chest pain or shortness of breath. He does say most of his muscles hurt. Objective Vital Signs Date Time Temp Pulse Resp B/P Pulse Ox O2 Delivery O2 Flow Rate FiO2 11/07/16 18:30 54 11/07/16 16:05 97.1 51 20 125/82 100 11/07/16 12:06 98.3 83 20 116/69 100 11/07/16 08:12 97.1 85 20 132/86 99 11/07/16 04:00 97.8 63 20 116/63 100 11/07/16 00:00 97.6 64 20 137/77 98 I/O 11/06/16 11/06/16 11/06/16 11/07/16 11/07/16 11/07/16 07:00 15:00 23:00 07:00 15:00 23:00 Intake Total 2316 ml 1668 ml 1000 ml 2360 ml 840 ml Output Total 1500 ml 900 ml Balance 2316 ml 1668 ml 1000 ml 860 ml -60 ml Intake Oral 360 ml 840 ml IV Total 2316 ml 1668 ml 1000 ml 2000 ml Output Urine Total 1500 ml 900 ml # Voids 2 10 4 # Bowel Movements 2 1 Result Diagram: 11/07/1652 11/07/16951 Objective Remarks GENERAL: Patient sitting up in bed. Appears Comfortable Alert and oriented 3.again, with no appreciable change on exam. SKIN: Warm and dry. HEAD: Normocephalic. EYES: No scleral icterus. No injection or drainage. NECK: Supple, trachea midline. No JVD. CARDIOVASCULAR: Regular rate and rhythm without murmurs, gallops, or rubs. RESPIRATORY: Breath sounds equal bilaterally. No accessory muscle use. GASTROINTESTINAL: Abdomen soft, non-tender, nondistended. MUSCULOSKELETAL: No cyanosis, or edema. BACK: Nontender without obvious deformity. No CVA tenderness. A/P Assessment and Plan Patient is a 26-year-old male with no significant primary medical history except for previous trauma in 2015 with multiple facial fractures, head injury in 2016 secondary to skateboarding accident he incurred a left temporal lobe hematoma with no acute hemorrhage. He was brought in by ambulance after having seizures 2. EMS was called and when they arrived he was initially post ictal, then had a return to normal mental status, then had another seizure that was witnessed by EMS. They reported a generalized tonic-clonic seizure that lasted about 15 minutes. They administered 2 mg of IM Ativan followed by 4 mg of IV Ativan after an IV was established. Upon arrival to the ED patient was awake but drowsy. //Seizures - possibly secondary to alcohol withdrawal - Neurochecks - Seizure precaution - Consult neurology input appreciated - EEG negative. MRI negative. -Continue Keppra, with Librium taper. //Tachycardia -improved with Librium. //Alcohol abuse, dependence - Patient counseled again. Discussed risk of continued alcohol use. - [facility] protocol - Thiamine and folate -11/05. Much improved. Continue Librium. //Tobacco abuse - Patient counseled. - Continue Nicotine patch //Substance abuse - check hepatitis panelstill pending. //Left back pain - X-ray pelvis no acute findings. Ibuprofen if necessary. //Metabolic acidosis, anion gap 21 on admission. Resolved. -Likely in postictal state, however subsequent lactic acid normal. -CK found to be subsequently 3400. //rhabdomyolysis. Acute. Increased from admission.secondary to seizure. -11/06. Increase IV fluids to 250 mL per hour. Continue to monitor. discharge if decreases below 5000. -11/07. CK increased to 16,000. Continue IV fluids with bicarbonate. Expect to improve 7. //Hypokalemia. Acute. Mild. Replaced. //Thrombocytopenia. Likely secondary to chronic alcoholic hepatitis. No bleeding. We'll continue to monitor. Will need follow-up as outpatient. Again. Stop drinking. -11/07. Stable. 100. No bleeding. Monitor. //Case management - consult for EtOH abuse plan for discharge, possible placement for rehabilitation treatment. Appreciate assistance. Case management has provided patient with information DVT prop SCDs GI prop pantoprazole Discharge Planning Can likely discharge home tomorrow if CK decreases below 5000. . He has information for follow-up with dave Jinag provided by case management. Robi Torres MD Nov 07, 2016 23:45
[2016-11-08] VITALS (7 sets, daily range): BP systolic 122–132; BP diastolic 67–80; PULSE 48–80; RESP 18–19; TEMP 97.2–98.4; O2SAT 95–99
[2016-11-08] MEDS: DEXTROSE 5% IV SCH ×12 (06:19→21:56)
[2016-11-08] MEDS: SODIUM BICARBONATE IV SCH ×12 (06:19→21:56)
[2016-11-08] MEDS: POTASSIUM CHLORIDE IV SCH ×12 (06:19→21:56)
[2016-11-08] MEDS: [UNRECOGNIZED DRUG - OTHER] IV SCH ×12 (06:19→21:56)
[2016-11-08] MEDS: chlordiazePOXIDE 25 MG CAP PO PRN ×3 (06:32→20:41)
[2016-11-08 08:11] LABS: AUTOMATED NEUTROPHIL # 3.1 TH/MM3 (1.8-7.7); BASOPHIL % 0.3 % (0.0-2.0); EOSINOPHIL # 0.1 TH/MM3 (0-0.4); EOSINOPHIL % 2.8 % (0.0-4.0); HEMATOCRIT 38.2 % (39.0-51.0); HEMO FLAGS DIFF FINAL; LYMPH % 16.1 % (9.0-44.0); LYMPHOCYTE # 0.8 TH/MM3 (1.0-4.8); MEAN CELL VOLUME 97.7 FL (80.0-100.0); MEAN CORPUSCULAR HEMOGLOBIN 33.9 PG (27.0-34.0); MEAN CORPUSCULAR HGB CONC 34.7 % (32.0-36.0); MONO % 16.8 % (0.0-8.0); PLATELET COUNT 108 TH/MM3 (150-450); RED BLOOD COUNT 3.91 MIL/MM3 (4.50-5.90); RED CELL DISTRIBUTION WIDTH 13.6 % (11.6-17.2); WHITE BLOOD COUNT 4.9 TH/MM3 (4.0-11.0)
[2016-11-08] MEDS: PANTOPRAZOLE SOD 40 MG DELAYED RELEASE TAB PO SCH (08:28)
[2016-11-08] MEDS: SODIUM CHLORIDE 0.9% FLUSH 5 ML FLUSH FLUSH SCH ×2 (08:29→20:35)
[2016-11-08] MEDS: THIAMINE HCL 100 MG TAB PO SCH (08:29)
[2016-11-08] MEDS: levETIRAcetam 500 MG TAB PO SCH ×2 (08:29→20:35)
[2016-11-08 09:15] LABS: BICARBONATE 32.9 MEQ/L (21.0-32.0); MAGNESIUM 1.8 MG/DL (1.5-2.5); POTASSIUM 3.2 MEQ/L (3.5-5.1)
[2016-11-08] MEDS ORDERED: POTASSIUM CHLORIDE 10 MEQ CONTROLLED RELEASE TAB PO ONE (11:00)
[2016-11-08 11:29] LABS: CKMB 4.1 NG/ML (0.5-3.6)
[2016-11-08] MEDS: MELATONIN 5 MG TAB PO PRN (22:01)
--- NOTE | 2016-11-08 23:43 | HHI.PR ---
Subjective Remarks patient seen today around 11 AM. Says he is feeling well. Denies any chest pain or shortness breath. States that muscle aches have gone. Objective Vital Signs Date Time Temp Pulse Resp B/P Pulse Ox O2 Delivery O2 Flow Rate FiO2 11/08/16 16:00 97.2 66 19 125/80 99 11/08/16 12:00 98.4 59 18 125/69 95 11/08/16 08:53 48 11/08/16 08:17 97.4 80 19 124/76 99 11/08/16 04:00 97.9 56 18 122/67 96 11/08/16 01:30 74 11/08/16 00:00 97.2 62 18 132/76 99 I/O 11/07/16 11/07/16 11/07/16 11/08/16 11/08/16 11/08/16 07:00 15:00 23:00 07:00 15:00 23:00 Intake Total 2360 ml 840 ml 800 ml 1698 ml 480 ml 2432 ml Output Total 1500 ml 900 ml 800 ml 3200 ml Balance 860 ml -60 ml 0 ml 1698 ml -2720 ml 2432 ml Intake Oral 360 ml 840 ml 800 ml 480 ml 480 ml IV Total 2000 ml 1218 ml 2432 ml Output Urine Total 1500 ml 900 ml 800 ml 3200 ml # Voids 3 2 # Bowel Movements 1 2 Result Diagram: 11/08/16 0736 11/08/16 0736 Objective Remarks GENERAL: Patient sitting up in Care. Appears Comfortable Alert and oriented 3.again, with no appreciable change on exam. SKIN: Warm and dry. HEAD: Normocephalic. EYES: No scleral icterus. No injection or drainage. NECK: Supple, trachea midline. No JVD. CARDIOVASCULAR: Regular rate and rhythm without murmurs, gallops, or rubs. RESPIRATORY: Breath sounds equal bilaterally. No accessory muscle use. GASTROINTESTINAL: Abdomen soft, non-tender, nondistended. MUSCULOSKELETAL: No cyanosis, or edema. BACK: Nontender without obvious deformity. No CVA tenderness. A/P Assessment and Plan Patient is a 26-year-old male with no significant primary medical history except for previous trauma in 2015 with multiple facial fractures, head injury in 2016 secondary to skateboarding accident he incurred a left temporal lobe hematoma with no acute hemorrhage. He was brought in by ambulance after having seizures 2. EMS was called and when they arrived he was initially post ictal, then had a return to normal mental status, then had another seizure that was witnessed by EMS. They reported a generalized tonic-clonic seizure that lasted about 15 minutes. They administered 2 mg of IM Ativan followed by 4 mg of IV Ativan after an IV was established. Upon arrival to the ED patient was awake but drowsy. //Seizures - possibly secondary to alcohol withdrawal - Neurochecks - Seizure precaution - Consult neurology input appreciated - EEG negative. MRI negative. -Continue Keppra, with Librium taper. //Tachycardia -improved with Librium. //Alcohol abuse, dependence - Patient counseled again. Discussed risk of continued alcohol use. - [facility] protocol - Thiamine and folate -11/05. Much improved. Continue Librium. //Tobacco abuse - Patient counseled. - Continue Nicotine patch //Substance abuse - check hepatitis panelstill pending. //Left back pain - X-ray pelvis no acute findings. Ibuprofen if necessary. //Metabolic acidosis, anion gap 21 on admission. Resolved. -resolved was likely related to seizure. //rhabdomyolysis. Acute. Increased from admission.secondary to seizure. -11/06. Increase IV fluids to 250 mL per hour. Continue to monitor. discharge if decreases below 5000. -11/07. CK increased to 18,000. Continue IV fluids with bicarbonate. Expect to improve 7. -11/08.CK slightly increased to 19,000. May be leveling off. Discussed with Dr Cervantes in neurology. We'll continue to monitor for now, if continues to increase by tomorrow will order further workup. //Hypokalemia. Acute. Mild. Replacedagain.likely this is secondary to large amounts of bicarbonate. We'll continue to monitor. //Thrombocytopenia. Likely secondary to chronic alcoholic hepatitis. No bleeding. We'll continue to monitor. Will need follow-up as outpatient. Again. Stop drinking. -11/07. Stable. 100. No bleeding. Monitor. //Case management - consult for EtOH abuse plan for discharge, possible placement for rehabilitation treatment. Appreciate assistance. Case management has provided patient with information DVT prop SCDs GI prop pantoprazole Discharge Planning postictal rhabdomyolysis. Can discharge home if CK decreases below 5000. . He has information for follow-up with dave Jiang provided by case management. Robi Torres MD Nov 08, 2016 23:43
[2016-11-09] VITALS: BP 119/65; PULSE 50; RESP 20; TEMP 96.6; O2SAT 99
[2016-11-09] MEDS: POTASSIUM CHLORIDE IV SCH ×12 (03:14→21:40)
[2016-11-09] MEDS: DEXTROSE 5% IV SCH ×12 (03:14→21:40)
[2016-11-09] MEDS: SODIUM BICARBONATE IV SCH ×12 (03:14→21:40)
[2016-11-09] MEDS: [UNRECOGNIZED DRUG - OTHER] IV SCH ×12 (03:14→21:40)
[2016-11-09 04:00] VITALS: BP 105/61; PULSE 50; RESP 18; TEMP 96.2; O2SAT 97
[2016-11-09 08:28] LABS: AUTOMATED NEUTROPHIL # 2.3 TH/MM3 (1.8-7.7); BASOPHIL % 0.4 % (0.0-2.0); EOSINOPHIL # 0.2 TH/MM3 (0-0.4); HEMATOCRIT 39.9 % (39.0-51.0); HEMO FLAGS DIFF FINAL; LYMPH % 22.8 % (9.0-44.0); MEAN CELL VOLUME 97.9 FL (80.0-100.0); MEAN CORPUSCULAR HEMOGLOBIN 34.5 PG (27.0-34.0); MEAN CORPUSCULAR HGB CONC 35.3 % (32.0-36.0); NEUT % 51.8 % (16.0-70.0); PLATELET COUNT 129 TH/MM3 (150-450); RED BLOOD COUNT 4.08 MIL/MM3 (4.50-5.90); RED CELL DISTRIBUTION WIDTH 13.4 % (11.6-17.2); WHITE BLOOD COUNT 4.5 TH/MM3 (4.0-11.0)
[2016-11-09] MEDS: SODIUM CHLORIDE 0.9% FLUSH 5 ML FLUSH FLUSH SCH ×2 (08:31→21:00)
[2016-11-09] MEDS: PANTOPRAZOLE SOD 40 MG DELAYED RELEASE TAB PO SCH (08:31)
[2016-11-09] MEDS: levETIRAcetam 500 MG TAB PO SCH ×2 (08:31→21:39)
[2016-11-09] MEDS: THIAMINE HCL 100 MG TAB PO SCH (08:31)
[2016-11-09 08:40] VITALS: BP 124/78; PULSE 71; RESP 18; TEMP 97.1; O2SAT 98
[2016-11-09 09:24] LABS: BICARBONATE 32.6 MEQ/L (21.0-32.0); POTASSIUM 3.6 MEQ/L (3.5-5.1)
[2016-11-09 09:43] LABS: CKMB 1.9 NG/ML (0.5-3.6)
[2016-11-09 12:00] VITALS: BP 128/71; PULSE 49; RESP 18; TEMP 97.8; O2SAT 100
[2016-11-09] MEDS: chlordiazePOXIDE 25 MG CAP PO PRN (13:04)
[2016-11-09 16:00] VITALS: BP 121/58; PULSE 57; RESP 18; TEMP 97.9; O2SAT 98
--- NOTE | 2016-11-09 16:04 | HHI.PR ---
Review/Management Diagnosis seizure related to ETOH but also history of temporal lobe contusion in the past rhabdomyolysis from sz.and binge etoh drinkng----cpk is starting to come down. Plan continue jovi d/c etoh Diagnosis/Plan: Subjective Subjective Comments No acute events reported No seizures He states that prior to admission he was drinking heavily on a daily basis Active Medications Current Medications Medications (Trade) Dose Ordered Sig/Omer Route Start Time Stop Time Status Last Admin (NS Flush) 2 ml UNSCH PRN FLUSH 11/04/16 17:45 (NS Flush) 2 ml BID FLUSH 11/04/16 21:00 11/09/16 08:31 (Narcan Inj) 0.4 mg UNSCH PRN IV 11/04/16 17:45 (Romazicon Inj) 0.2 mg Q1M PRN IV PUSH 11/04/16 17:45 (Ativan) 1 mg Q4H PRN PO 11/04/16 17:45 11/07/16 00:47 (Ativan Inj) 1 mg Q4H PRN IV PUSH 11/04/16 17:45 (Ativan) 2 mg Q2H PRN PO 11/04/16 17:45 (Ativan Inj) 2 mg Q2H PRN IV PUSH 11/04/16 17:45 11/04/16 22:17 (Ativan Inj) 2 mg Q1H PRN IV PUSH 11/04/16 17:45 (Ativan Inj) 2 mg Q15M PRN IV PUSH 11/04/16 17:45 (Vitamin B1) 100 mg DAILY PO 11/05/16 09:00 11/09/16 08:31 (Librium) 25 mg TID PRN PO 11/04/16 18:45 11/09/16 13:04 (Protonix) 40 mg DAILY PO 11/04/16 20:00 11/09/16 08:31 Levetriacetam 500 mg 500 mg Q12HR PO 11/05/16 11:00 11/09/16 08:31 (Sodium Bicarbonate 8.4% Inj/KCl Inj/D5W 1000 ml Inj) 1,165 ml @ 250 mls/hr Q4H40M IV 11/05/16 18:00 11/09/16 14:47 (Melatonin) 5 mg HS PRN PO 11/06/16 19:45 11/08/16 22:01 Allergies Allergies Coded Allergies No Known Allergies (Verified11/04/16) Exam I&O / VS 11/08/16 11/08/16 11/09/16 15:00 23:00 07:00 Intake Total 480 ml 2432 ml 360 ml Output Total 3200 ml Balance -2720 ml 2432 ml 360 ml Intake Oral 480 ml 360 ml IV Total 2432 ml Output Urine Total 3200 ml # Voids 2 3 # Bowel Movements 2 Vital Signs Date Time Temp Pulse Resp B/P Pulse Ox O2 Delivery O2 Flow Rate FiO2 11/09/16 12:00 97.8 49 18 128/71 100 11/09/16 08:40 97.1 71 18 124/78 98 11/09/16 04:00 96.2 50 18 105/61 97 11/09/16 00:00 96.6 50 20 119/65 99 Exam Comments alert speech normal cn 2-12 normal motor 5/5 bue and ble Objective Micro and Labs Laboratory Tests Test 11/09/16 07:23 White Blood Count 4.5 Red Blood Count 4.08 Hemoglobin 14.1 Hematocrit 39.9 Mean Corpuscular Volume 97.9 Mean Corpuscular Hemoglobin 34.5 Mean Corpuscular Hemoglobin 35.3 Concent Red Cell Distribution Width 13.4 Platelet Count 129 Mean Platelet Volume 9.2 Neutrophils (%) (Auto) 51.8 Lymphocytes (%) (Auto) 22.8 Monocytes (%) (Auto) 21.0 Eosinophils (%) (Auto) 4.0 Basophils (%) (Auto) 0.4 Neutrophils # (Auto) 2.3 Lymphocytes # (Auto) 1.0 Monocytes # (Auto) 0.9 Eosinophils # (Auto) 0.2 Basophils # (Auto) 0.0 CBC Comment DIFF FINAL Differential Comment Sodium Level 141 Potassium Level 3.6 Chloride Level 100 Carbon Dioxide Level 32.6 Anion Gap 8 Blood Urea Nitrogen 4 Creatinine 0.84 Estimat Glomerular Filtration 111 Rate Random Glucose 85 Calcium Level 8.7 Phosphorus Level 4.4 Magnesium Level 2.0 Total Creatine Kinase 94097 Creatine Kinase MB 1.9 Creatine Kinase MB % 0.0 Albumin 3.7 Nikhil Cervantes PhD Nov 09, 2016 16:04
--- NOTE | 2016-11-09 18:49 | HHI.PR ---
Subjective Remarks patient seen today around 11 AM. Says he is feeling great. Denies any chest pain or shortness of breath. He says he did have some leg cramps yesterday which are better today. Discussed CPK improving 12,000 today. We'll continue IV fluids, monitoring. Objective Vital Signs Date Time Temp Pulse Resp B/P Pulse Ox O2 Delivery O2 Flow Rate FiO2 11/09/16 16:00 97.9 57 18 121/58 98 11/09/16 12:00 97.8 49 18 128/71 100 11/09/16 08:40 97.1 71 18 124/78 98 11/09/16 04:00 96.2 50 18 105/61 97 11/09/16 00:00 96.6 50 20 119/65 99 I/O 11/08/16 11/08/16 11/08/16 11/09/16 11/09/16 11/09/16 07:00 15:00 23:00 07:00 15:00 23:00 Intake Total 1698 ml 480 ml 2432 ml 360 ml 800 ml Output Total 3200 ml Balance 1698 ml -2720 ml 2432 ml 360 ml 800 ml Intake Oral 480 ml 480 ml 360 ml 800 ml IV Total 1218 ml 2432 ml Output Urine Total 3200 ml # Voids 3 2 3 6 # Bowel Movements 2 Result Diagram: 11/09/1672211/09/16722 Objective Remarks GENERAL: Patient sitting up in Chair. Appears Comfortable Alert and oriented 3.no changes on exam today. SKIN: Warm and dry. HEAD: Normocephalic. EYES: No scleral icterus. No injection or drainage. NECK: Supple, trachea midline. No JVD. CARDIOVASCULAR: Regular rate and rhythm without murmurs, gallops, or rubs. RESPIRATORY: Breath sounds equal bilaterally. No accessory muscle use. GASTROINTESTINAL: Abdomen soft, non-tender, nondistended. MUSCULOSKELETAL: No cyanosis, or edema. BACK: Nontender without obvious deformity. No CVA tenderness. A/P Assessment and Plan Patient is a 26-year-old male with no significant primary medical history except for previous trauma in 2015 with multiple facial fractures, head injury in 2016 secondary to skateboarding accident he incurred a left temporal lobe hematoma with no acute hemorrhage. He was brought in by ambulance after having seizures 2. EMS was called and when they arrived he was initially post ictal, then had a return to normal mental status, then had another seizure that was witnessed by EMS. They reported a generalized tonic-clonic seizure that lasted about 15 minutes. They administered 2 mg of IM Ativan followed by 4 mg of IV Ativan after an IV was established. Upon arrival to the ED patient was awake but drowsy. MRI and EEG negative for acute findings. Patient was to be discharged, however CPK became elevated, max 19,000, however subsequently improving with IV fluids. 11/09. CPK improving 12,000 today. We'll continue IV fluids, monitoring. //Seizures - possibly secondary to alcohol withdrawal - Neurochecks - Seizure precaution - Consult neurology input appreciated - EEG negative. MRI negative. -Continue Keppra, with Librium taper. continue Librium 25 mg 3 times a day while here. //Tachycardia -improved with Librium. //Alcohol abuse, dependence - Patient counseled again. Discussed risk of continued alcohol use. - [facility] protocol - Thiamine and folate -11/05. Much improved. Continue Librium. =stable. Continue Librium. Taper as outpatient. Followup as outpatient. //Tobacco abuse - Patient counseled. - Continue Nicotine patch //Substance abuse - check hepatitis panelstill pending. //Left back pain - X-ray pelvis no acute findings. Ibuprofen if necessary. //Metabolic acidosis, anion gap 21 on admission. Resolved. -resolved was likely related to seizure. //rhabdomyolysis. Acute. Increased from admission.secondary to seizure. -11/06. Increase IV fluids to 250 mL per hour. Continue to monitor. discharge if decreases below 5000. -11/07. CK increased to 18,000. Continue IV fluids with bicarbonate. Expect to improve 7. -11/08.CK slightly increased to 19,000. May be leveling off. Discussed with Dr Cervantes in neurology. We'll continue to monitor for now, if continues to increase by tomorrow will order further workup. //Hypokalemia. Acute. Mild. Replacedagain.likely this is secondary to large amounts of bicarbonate. We'll continue to monitor. //Thrombocytopenia. Likely secondary to chronic alcoholic hepatitis. No bleeding. We'll continue to monitor. Will need follow-up as outpatient. Again. Stop drinking. -11/07. Stable. 100. No bleeding. Monitor. //Case management - consult for EtOH abuse plan for discharge, possible placement for rehabilitation treatment. Appreciate assistance. Case management has provided patient with information DVT prop SCDs GI prop pantoprazole Discharge Planning postictal rhabdomyolysis. Can discharge home if CK decreases below 5000. . He has information for follow-up with dave Jiang provided by case management. Robi Torres MD Nov 09, 2016 18:49
[2016-11-09 20:00] VITALS: BP 131/69; PULSE 54; RESP 20; TEMP 97.7; O2SAT 98
[2016-11-10] VITALS (7 sets, daily range): BP systolic 107–148; BP diastolic 54–91; PULSE 51–96; RESP 18–26; TEMP 96.8–98.2; O2SAT 97–100
[2016-11-10] MEDS: SODIUM BICARBONATE IV SCH ×15 (02:06→20:57)
[2016-11-10] MEDS: DEXTROSE 5% IV SCH ×15 (02:06→20:57)
[2016-11-10] MEDS: POTASSIUM CHLORIDE IV SCH ×15 (02:06→20:57)
[2016-11-10] MEDS: [UNRECOGNIZED DRUG - OTHER] IV SCH ×15 (02:06→20:57)
[2016-11-10 09:16] LABS: AUTOMATED NEUTROPHIL # 2.4 TH/MM3 (1.8-7.7); BASOPHIL % 0.6 % (0.0-2.0); EOSINOPHIL # 0.1 TH/MM3 (0-0.4); EOSINOPHIL % 3.1 % (0.0-4.0); HEMATOCRIT 37.3 % (39.0-51.0); HEMO FLAGS DIFF FINAL; LYMPH % 23.2 % (9.0-44.0); LYMPHOCYTE # 1.1 TH/MM3 (1.0-4.8); MEAN CELL VOLUME 98.8 FL (80.0-100.0); MEAN CORPUSCULAR HEMOGLOBIN 34.4 PG (27.0-34.0); MEAN CORPUSCULAR HGB CONC 34.8 % (32.0-36.0); MONO % 20.3 % (0.0-8.0); NEUT % 52.8 % (16.0-70.0); PLATELET COUNT 132 TH/MM3 (150-450); RED BLOOD COUNT 3.77 MIL/MM3 (4.50-5.90); RED CELL DISTRIBUTION WIDTH 13.5 % (11.6-17.2); WHITE BLOOD COUNT 4.5 TH/MM3 (4.0-11.0)
[2016-11-10] MEDS: SODIUM CHLORIDE 0.9% FLUSH 5 ML FLUSH FLUSH SCH ×2 (09:52→20:58)
[2016-11-10] MEDS: chlordiazePOXIDE 25 MG CAP PO SCH ×3 (09:52→18:10)
[2016-11-10] MEDS: PANTOPRAZOLE SOD 40 MG DELAYED RELEASE TAB PO SCH (09:52)
[2016-11-10] MEDS: levETIRAcetam 500 MG TAB PO SCH ×2 (09:52→20:59)
[2016-11-10] MEDS: THIAMINE HCL 100 MG TAB PO SCH (09:52)
[2016-11-10 10:04] LABS: BICARBONATE 29.4 MEQ/L (21.0-32.0); MAGNESIUM 1.9 MG/DL (1.5-2.5); POTASSIUM 3.5 MEQ/L (3.5-5.1)
[2016-11-10 10:25] LABS: CKMB 1.2 NG/ML (0.5-3.6)
[2016-11-10 13:56] LABS: CKMB 1.3 NG/ML (0.5-3.6)
[2016-11-10 21:12] LABS: MEAN CORPUSCULAR HGB CONC 36.7 % (32.0-36.0)
--- NOTE | 2016-11-10 22:28 | HHI.PR ---
Subjective Remarks patient seen today around 11 AM. Patient says he feels well. No complaints. No muscle pain. Discussed with patient that we might be able to let him go home if CPK is below 5000. We ordered a repeat today, still over 5000. Objective Vital Signs Date Time Temp Pulse Resp B/P Pulse Ox O2 Delivery O2 Flow Rate FiO2 11/10/16 20:00 97.2 96 26 148/91 99 11/10/16 16:49 98.2 70 19 136/68 99 11/10/16 12:42 97.8 59 20 129/62 98 11/10/16 09:40 51 11/10/16 08:00 96.8 63 19 135/74 98 11/10/16 05:31 97.5 60 18 107/54 100 11/10/16 00:13 97.6 60 20 127/75 97 I/O 11/09/16 11/09/16 11/09/16 11/10/16 11/10/16 11/10/16 07:00 15:00 23:00 07:00 15:00 23:00 Intake Total 360 ml 800 ml 720 ml 1943 ml Output Total 700 ml Balance 360 ml 800 ml 720 ml 1243 ml Intake Oral 360 ml 800 ml 720 ml 680 ml IV Total 1263 ml Output Urine Total 700 ml # Voids 3 6 2 # Bowel Movements 0 3 Result Diagram: 11/10/16 0807 11/10/16 0801 Objective Remarks GENERAL: Patient sitting up on edge of bed. Appears Comfortable Alert and oriented 3.no changes on exam today. SKIN: Warm and dry. HEAD: Normocephalic. EYES: No scleral icterus. No injection or drainage. NECK: Supple, trachea midline. No JVD. CARDIOVASCULAR: Regular rate and rhythm without murmurs, gallops, or rubs. RESPIRATORY: Breath sounds equal bilaterally. No accessory muscle use. GASTROINTESTINAL: Abdomen soft, non-tender, nondistended. MUSCULOSKELETAL: No cyanosis, or edema. BACK: Nontender without obvious deformity. No CVA tenderness. A/P Assessment and Plan Patient is a 26-year-old male with no significant primary medical history except for previous trauma in 2015 with multiple facial fractures, head injury in 2016 secondary to skateboarding accident he incurred a left temporal lobe hematoma with no acute hemorrhage. He was brought in by ambulance after having seizures 2. EMS was called and when they arrived he was initially post ictal, then had a return to normal mental status, then had another seizure that was witnessed by EMS. They reported a generalized tonic-clonic seizure that lasted about 15 minutes. They administered 2 mg of IM Ativan followed by 4 mg of IV Ativan after an IV was established. Upon arrival to the ED patient was awake but drowsy. MRI and EEG negative for acute findings. Patient was to be discharged, however CPK became elevated, max 19,000, however subsequently improving with IV fluids. 11/10. CPK improving 6200, 6060. Repeat timed for 4 AM. Should return around 8 AM. Patient can discharge home tomorrow morning if below 5000. We'll follow up with Dr. Frerie in clinic. //Seizures - possibly secondary to alcohol withdrawal - Neurochecks - Seizure precaution - Consult neurology input appreciated - EEG negative. MRI negative. -Continue Keppra, with Librium taper. continue Librium 25 mg 3 times a day while here. //Tachycardia -improved with Librium. //Alcohol abuse, dependence - Patient counseled again. Discussed risk of continued alcohol use. - [facility] protocol - Thiamine and folate -11/05. Much improved. Continue Librium. =stable. Continue Librium. Taper as outpatient. Followup as outpatient. //Tobacco abuse - Patient counseled. - Continue Nicotine patch //Substance abuse - check hepatitis panelstill pending. //Left back pain - X-ray pelvis no acute findings. Ibuprofen if necessary. //Metabolic acidosis, anion gap 21 on admission. Resolved. -resolved was likely related to seizure. //rhabdomyolysis. Acute. Increased from admission.secondary to seizure. -11/06. Increase IV fluids to 250 mL per hour. Continue to monitor. discharge if decreases below 5000. -11/07. CK increased to 18,000. Continue IV fluids with bicarbonate. Expect to improve 7. -11/08.CK slightly increased to 19,000. May be leveling off. Discussed with Dr Cervantes in neurology. We'll continue to monitor for now, if continues to increase by tomorrow will order further workup. //Hypokalemia. Acute. Mild. Replacedagain.likely this is secondary to large amounts of bicarbonate. We'll continue to monitor. //Thrombocytopenia. Likely secondary to chronic alcoholic hepatitis. No bleeding. We'll continue to monitor. Will need follow-up as outpatient. Again. Stop drinking. -11/07. Stable. 100. No bleeding. Monitor. //Case management - consult for EtOH abuse plan for discharge, possible placement for rehabilitation treatment. Appreciate assistance. Case management has provided patient with information DVT prop SCDs GI prop pantoprazole Discharge Planning postictal rhabdomyolysis. Can discharge home if CK decreases below 5000. . He has information for follow-up with dave Jiang provided by case management. Robi Torres MD Nov 10, 2016 22:28
[2016-11-11] VITALS: BP 121/60; PULSE 96; RESP 22; TEMP 97.1; O2SAT 100
[2016-11-11] MEDS: [UNRECOGNIZED DRUG - OTHER] IV SCH ×6 (01:26→06:06)
[2016-11-11] MEDS: DEXTROSE 5% IV SCH ×6 (01:26→06:06)
[2016-11-11] MEDS: SODIUM BICARBONATE IV SCH ×6 (01:26→06:06)
[2016-11-11] MEDS: POTASSIUM CHLORIDE IV SCH ×6 (01:26→06:06)
[2016-11-11 04:00] VITALS: BP 120/70; PULSE 88; RESP 18; TEMP 98.7; O2SAT 100
[2016-11-11 04:12] LABS: AUTOMATED NEUTROPHIL # 2.6 TH/MM3 (1.8-7.7); BASOPHIL % 0.6 % (0.0-2.0); EOSINOPHIL # 0.1 TH/MM3 (0-0.4); EOSINOPHIL % 2.7 % (0.0-4.0); HEMATOCRIT 35.8 % (39.0-51.0); LYMPH % 25.8 % (9.0-44.0); LYMPHOCYTE # 1.3 TH/MM3 (1.0-4.8); MEAN CELL VOLUME 97.5 FL (80.0-100.0); MEAN CORPUSCULAR HEMOGLOBIN 35.8 PG (27.0-34.0); MONO % 16.8 % (0.0-8.0); NEUT % 54.1 % (16.0-70.0); PLATELET COUNT 140 TH/MM3 (150-450); RED BLOOD COUNT 3.67 MIL/MM3 (4.50-5.90); RED CELL DISTRIBUTION WIDTH 13.5 % (11.6-17.2); WHITE BLOOD COUNT 4.9 TH/MM3 (4.0-11.0)
[2016-11-11 04:16] LABS: HEMO FLAGS AUTO DIFF
[2016-11-11 04:46] LABS: BICARBONATE 30.6 MEQ/L (21.0-32.0); POTASSIUM 3.7 MEQ/L (3.5-5.1)
[2016-11-11 05:24] LABS: CKMB 0.9 NG/ML (0.5-3.6)
[2016-11-11 08:00] VITALS: BP 136/81; PULSE 62; RESP 18; TEMP 97.1; O2SAT 100
[2016-11-11] MEDS: PANTOPRAZOLE SOD 40 MG DELAYED RELEASE TAB PO SCH (08:37)
[2016-11-11] MEDS: THIAMINE HCL 100 MG TAB PO SCH (08:37)
[2016-11-11] MEDS: levETIRAcetam 500 MG TAB PO SCH (08:37)
[2016-11-11] MEDS: chlordiazePOXIDE 25 MG CAP PO SCH (08:37)
--- NOTE | 2016-11-11 09:05 | HHI.PR ---
Subjective Remarks Patient seen and examined this am. Vitals stable afebrile. Tolerating diet. Ambulatory without issues. No overnight events. Denies CP or difficulty breathing. Is anxious to go home. (Renetta Wheeler MD R3) Objective Vital Signs Date Time Temp Pulse Resp B/P Pulse Ox O2 Delivery O2 Flow Rate FiO2 11/11/16 04:00 98.7 88 18 120/70 100 11/11/16 00:00 97.1 96 22 121/60 100 11/10/16 20:00 97.2 96 26 148/91 99 11/10/16 16:49 98.2 70 19 136/68 99 11/10/16 12:42 97.8 59 20 129/62 98 11/10/16 09:40 51 I/O 11/10/16 11/10/16 11/10/16 11/11/16 11/11/16 11/11/16 07:00 15:00 23:00 07:00 15:00 23:00 Intake Total 1943 ml 360 ml Output Total 700 ml Balance 1243 ml 360 ml Intake Oral 680 ml 360 ml IV Total 1263 ml Output Urine Total 700 ml # Bowel Movements 3 (Renetta Wheeler MD R3) Result Diagram: 11/11/16 0352 11/11/16 0352 Imaging Last Impressions Brain MRI 11/05/16 0000 Signed Impressions: Service Date/Time: Saturday, November 05, 2016 13:02 - CONCLUSION: Negative brain MRI with and without intravenous contrast. No abnormality is identified to explain the patient's seizures. Indra Parsons MD Pelvis X-Ray 11/04/16 0000 Signed Impressions: Service Date/Time: Friday, November 04, 2016 18:58 - CONCLUSION: No acute disease. Castillo Caro MD Head CT 11/04/16 0000 Signed Impressions: Service Date/Time: Friday, November 04, 2016 16:54 - CONCLUSION: Normal examination. Castillo Caro MD Other Results GENERAL: Patient laying in bed. Appears Comfortable Alert and oriented 3.no changes on exam today. SKIN: Warm and dry. HEAD: Normocephalic. EYES: No scleral icterus. No injection or drainage. NECK: Supple, trachea midline. No JVD. CARDIOVASCULAR: Regular rate and rhythm without murmurs, gallops, or rubs. RESPIRATORY: Breath sounds equal bilaterally. No accessory muscle use. GASTROINTESTINAL: Abdomen soft, non-tender, nondistended. MUSCULOSKELETAL: No cyanosis, or edema. BACK: Nontender without obvious deformity. (Renetta Wheeler MD R3) A/P Problem List: (1) Alcohol withdrawal seizure ICD Code: F10.239 (2) Alcohol abuse ICD Code: F10.10 (3) Tobacco abuse ICD Code: Z72.0 Assessment and Plan Patient is a 26-year-old male with no significant primary medical history brought to the ER on 11/04 after 2 witnessed seizures. MRI and EEG negative for acute findings. Patient was to be discharged, however CPK became elevated, max 19,000, however subsequently improving with IV fluids. 1. Seizures: Unclear etiology, likely related to EtOH but also has a history of head injury including temporal lobe contusion. EEG negative. MRI negative. CT head negative. Seizure-free while in hospital. Neuro as seen and evaluated the patient. Started on Keppra we'll continue this upon DC. Patient subsequently developed rhabdomyolysis related to his seizure activity. CPK down trending. 2. Tachycardia. Resolved 3. Alcohol abuse, dependence - Patient counseled again. Discussed risk of continued alcohol use. - [facility] protocol - Thiamine and folate -11/05. Much improved. Continue Librium. - Continue Librium. Taper as outpatient. Followup as outpatient. 3. Tobacco abuse - Patient counseled. - Continue Nicotine patch 4. Substance abuse. Hepatitis panel negative. 5. Left back pain - X-ray pelvis no acute findings. Ibuprofen if necessary. 6. Metabolic acidosis, anion gap 21 on admission. Resolved. -resolved was likely related to seizure. Case management - consult for EtOH abuse plan for discharge by previous physician, possible placement for rehabilitation treatment. Appreciate assistance. Case management has provided patient with information DVT prop SCDs GI prop pantoprazole He has information for follow-up with started provided by case management. Discharge Planning Discharge from this morning. (Renetta hWeeler MD R3) Problem Qualifiers (1) Alcohol withdrawal seizure: Qualified Code: F10.239 - Alcohol withdrawal seizure, with unspecified complication Renetta Wheeler MD R3 Nov 11, 2016 09:05 Carmen Rangel MD Nov 13, 2016 14:33 Renetta Wheeler MD R3 Nov 11, 2016 09:05
[2016-11-11 09:41] LABS: SCAN/DIFF AUTO DIFF CONFIRMED
[2016-11-11 12:00] VITALS: BP 135/81; PULSE 57; RESP 18; TEMP 97.5; O2SAT 98
--- NOTE | 2016-11-11 16:11 | HHI.DS ---
Renetta Wheeler MD R3 11/11/16 1610: Discharge Summary Admission Date Nov 04, 2016 at 17:45 Discharge Date: Nov 11, 2016 Admitting Diagnosis alcohol withdrawal seizures Consultants Neuro Brief History Patient is a 26-year-old male with no significant primary medical history brought to the ER on 11/04 after 2 witnessed seizures. MRI and EEG negative for acute findings. Patient was to be discharged, however CPK became elevated, max 19,000, however subsequently improving with IV fluids. 1. Seizures: Unclear etiology, likely related to EtOH but also has a history of head injury including temporal lobe contusion. EEG negative. MRI negative. CT head negative. Seizure-free while in hospital. Neuro as seen and evaluated the patient. Started on Keppra we'll continue this upon DC. Patient subsequently developed rhabdomyolysis related to his seizure activity. CPK down trending. 2. Tachycardia. Resolved 3. Alcohol abuse, dependence - Patient counseled again. Discussed risk of continued alcohol use. - [facility] protocol - Thiamine and folate -11/05. Much improved. Continue Librium. - Continue Librium. Taper as outpatient. Followup as outpatient. 3. Tobacco abuse - Patient counseled. - Continue Nicotine patch 4. Substance abuse. Hepatitis panel negative. 5. Left back pain - X-ray pelvis no acute findings. Ibuprofen if necessary. 6. Metabolic acidosis, anion gap 21 on admission. Resolved. -resolved was likely related to seizure. CBC/BMP: 11/11/16 0352 11/11/16 0352 Significant Findings Laboratory Tests Test 11/09/16 11/10/16 11/10/16 11/10/16 07:23 08:01 08:07 13:00 Red Blood Count 4.08 MIL/MM3 3.77 MIL/MM3 (4.50-5.90) (4.50-5.90) Mean Corpuscular Hemoglobin 34.5 PG 34.4 PG (27.0-34.0) (27.0-34.0) Platelet Count 129 TH/MM3 132 TH/MM3 (150-450) (150-450) Monocytes (%) (Auto) 21.0 % 20.3 % (0.0-8.0) (0.0-8.0) Carbon Dioxide Level 32.6 MEQ/L (21.0-32.0) Blood Urea Nitrogen 4 MG/DL (7-18) 4 MG/DL (7-18) Total Creatine Kinase 65464 U/L 6200 U/L 6063 U/L (39-308) (39-308) (39-308) Hematocrit 37.3 % (39.0-51.0) Vitamin B12 Level 1331 PG/ML (193-986) Test 11/11/16 03:52 Red Blood Count 3.67 MIL/MM3 (4.50-5.90) Hematocrit 35.8 % (39.0-51.0) Mean Corpuscular Hemoglobin 35.8 PG (27.0-34.0) Mean Corpuscular Hemoglobin 36.7 % Concent (32.0-36.0) Platelet Count 140 TH/MM3 (150-450) Monocytes (%) (Auto) 16.8 % (0.0-8.0) Blood Urea Nitrogen 6 MG/DL (7-18) Random Glucose 107 MG/DL (74-106) Total Creatine Kinase 3095 U/L (39-308) Hospital Course 26-year-old male patient admitted to the hospital for witnessed seizures, likely related to alcohol withdrawal. The patient was seen by neurology. EEG, CT, and MRI were all negative. The patient also developed rhabdo as a result of his seizures, he was given aggressive fluid hydration. His CPK down trended. The patient was counseled regarding his alcohol use. Information was given way he can get help and counseling regarding his abuse/misuse. The patient was discharged in stable condition. Pt Condition on Discharge: Good Discharge Disposition: Discharge Home Discharge Instructions DIET: Follow Instructions for: As Tolerated, No Restrictions Activities you can perform: Regular-No Restrictions Carmen Rangel MD 11/13/16 1432: Discharge Summary CBC/BMP: 11/11/16 0352 11/11/16 0352 Renetta Wheeler MD R3 Nov 11, 2016 16:10 Carmen Rangel MD Nov 13, 2016 14:32
== END 2016-11-11 13:52 | disposition home or self-care (01) | DRG 101 ==
LOC: NEPC 15:56 → NEDA 17:45 → N05B 21:33
PROVIDERS: ADMIT Family Medicine; ATTEND Family Medicine
DX: R56.9 Unspecified convulsions (principal); E87.2 Acidosis; M62.82 Rhabdomyolysis; F10.239 Alcohol dependence with withdrawal, unspecified; K70.10 Alcoholic hepatitis without ascites; R00.0 Tachycardia, unspecified; E87.6 Hypokalemia; D69.6 Thrombocytopenia, unspecified; S51.811A Laceration without foreign body of right forearm, initial encounter; Y90.0 Blood alcohol level of less than 20 mg/100 ml; W19.XXXA Unspecified fall, initial encounter; Y92.9 Unspecified place or not applicable; F17.200 Nicotine dependence, unspecified, uncomplicated; Z87.820 Personal history of traumatic brain injury
CPT/HCPCS: 36600; 70450; 70553; 72170; 80053; 80069; 80074; 80307; 80320; 81001; 82247; 82248; 82550; 82552; 82607; 82805; 82948; 83036; 83605; 83735; 85025; 85610; 93005; 95819; 96360; A9579; J2060; J3475; J3480; J7030; J7070

== ENCOUNTER 2017-06-21 23:49 | Emergency (ER) | payer SELFPAY ==
[~2017-06-21] VITALS: Ht 185.4 cm; Wt 90.0 kg
[~2017-06-21 23:49] MED LIST: CHLO25CA2 PO; LEVE500 PO; VITA100T2 PO
[2017-06-21 23:51] VITALS: BP 135/74; PULSE 92; RESP 16; TEMP 98.2; O2SAT 97
[2017-06-22] MEDS ORDERED: SODIUM CHLOR 0.9% 1000 ML INJ 1,000 ML IV ONE ×2 (00:59→04:00)
[2017-06-22] MEDS ORDERED: ONDANSETRON HCL 4 MG/2 ML VIAL IV PUSH ONE (01:00)
[2017-06-22] MEDS ORDERED: SODIUM CHLORIDE 0.9% FLUSH 10 ML FLUSH IVF PRN (01:00)
[2017-06-22 01:30] VITALS: O2SAT 98
--- NOTE | 2017-06-22 01:32 | RADRPT ---
EXAM DATE/TIME: 06/22/2017 01:04 [facility] COMPARISON: CT BRAIN W/O CONTRAST, November 04, 2016, 16:54. INDICATIONS : Altered mental status, possible seizure. Dizziness. Cephalgia. RADIATION DOSE: 56.35 CTDIvol (mGy) MEDICAL HISTORY : Seizures. SURGICAL HISTORY : None. ENCOUNTER: Initial ACUITY: 1 day PAIN SCALE: 0/10 LOCATION: cranial TECHNIQUE: Multiple contiguous axial images were obtained of the head. Using automated exposure control and adj ustment of the mA and/or kV according to patient size, radiation dose was kept as low as reasonably a chievable to obtain optimal diagnostic quality images. DICOM format image data is available electro nically for review and comparison. FINDINGS: CEREBRUM: The ventricles are normal for age. No evidence of midline shift, mass lesion, hemorrhage or acute in farction. No extra-axial fluid collections are seen. POSTERIOR FOSSA: The cerebellum and brainstem are intact. The 4th ventricle is midline. The cerebellopontine angle i s unremarkable. EXTRACRANIAL: The visualized portion of the orbits is intact. SKULL: The calvaria is intact. No evidence of skull fracture. CONCLUSION: No acute disease. Surya Ratliff MD on June 22, 2017 at 1:31 Board Certified Radiologist. This report was verified electronically.
[2017-06-22 01:33] LABS: ALT (GPT) 35 U/L (12-78); ANION GAP 20 MEQ/L (5-15); AST (GOT) 58 U/L (15-37); BICARBONATE 19.1 MEQ/L (21.0-32.0); BLOOD UREA NITROGEN 9 MG/DL (7-18); CHLORIDE 92 MEQ/L (98-107); GLOMERULAR FILTRATION RATE 100 ML/MIN (>89); HEMATOCRIT 45.7 % (39.0-51.0); HEMO FLAGS DIFF FINAL; LYMPH % 5.5 % (9.0-44.0); LYMPHOCYTE # 0.8 TH/MM3 (1.0-4.8); MEAN CORPUSCULAR HGB CONC 34.7 % (32.0-36.0); MONO % 7.3 % (0.0-8.0); NEUT % 87.2 % (16.0-70.0); PLATELET COUNT 213 TH/MM3 (150-450); POTASSIUM 3.9 MEQ/L (3.5-5.1); RED BLOOD COUNT 4.81 MIL/MM3 (4.50-5.90); RED CELL DISTRIBUTION WIDTH 13.1 % (11.6-17.2); SODIUM (NA) 131 MEQ/L (136-145); WHITE BLOOD COUNT 14.9 TH/MM3 (4.0-11.0)
[2017-06-22 01:35] LABS: ALKALINE PHOSPHATASE 52 U/L (45-117); TOTAL BILIRUBIN ADULT 1.1 MG/DL (0.2-1.0)
[2017-06-22 01:39] LABS: ALCOHOL LESS THAN 3 MG/DL (0-5)
[2017-06-22 03:15] LABS: BICARBONATE 19.1 MEQ/L (21.0-32.0); POTASSIUM 3.8 MEQ/L (3.5-5.1)
[2017-06-22] MEDS: IBUPROFEN 600 MG TAB PO ONE ×2 (04:00→04:03)
--- NOTE | 2017-06-22 04:34 | PD ---
HPI Chief Complaint: Seizure Time Seen by Provider: 00:43 Travel History International Travel<30 days: No Contact w/Intl Traveler<30days: No Traveled to known affect area: No History of Present Illness HPI Patient is a 26-year-old male comes in after seizure earlier today. He says it happened about 7 PM. He says he has had 2 other seizures in the past, which were usually associated with alcohol withdrawal. He says he did have something to drink earlier today. He says that since the seizure he has had muscle cramping and just doesn't feel well. He's had some nausea and vomiting. He denies fever or chills. He denies dizziness or blurred vision. He says that his vision did seem to get blurry right before the seizure, but is back to normal now. He has not seen a neurologist regarding seizures. PFSH Past Medical History Autoimmune Disease: No Cancer: No Cardiovascular Problems: Yes Cerebrovascular Accident: No Diminished Hearing: No Endocrine: No Gastrointestinal Disorders: Yes Genitourinary: No Immune Disorder: No Implanted Vascular Access Dvce: No Musculoskeletal: No Neurologic: Yes (head injuiry from previous trauma x2) Psychiatric: No Reproductive: No Respiratory: Yes Immunizations Current: Yes Seizures: Yes (2X) Tetanus Vaccination: < 5 Years Influenza Vaccination: No Past Surgical History Abdominal Surgery: No Cardiac Surgery: No Ear Surgery: No Endocrine Surgery: No Eye Surgery: No Gynecologic Surgery: No Neurologic Surgery: No Oral Surgery: No Thoracic Surgery: No Other Surgery: Yes (FACIAL SURGERY) Social History Alcohol Use: Yes (1/2 GALLON DAILY) Tobacco Use: Yes (<1 PPD) Substance Use: Yes (MARIJUANA, ALCOHOL) Allergies-Medications (Allergen,Severity, Reaction): Coded Allergies: No Known Allergies (Verified , 06/22/17) Reported Meds & Prescriptions Reported Meds & Active Scripts Active No Active Prescriptions or Reported Medications Review of Systems Except as stated in HPI: all other systems reviewed are Neg General / Constitutional: No: Fever, Chills Eyes: No: Diploplia, Blurred Vision HENT: Positive: Headaches Cardiovascular: No: Chest Pain or Discomfort Respiratory: No: Shortness of Breath Gastrointestinal: Positive: Nausea, Vomiting, No: Abdominal Pain Musculoskeletal: Positive: Myalgias, No: Edema Skin: No Rash, No Change in Pigmentation Neurologic: Positive: Seizures, No: Weakness Physical Exam Narrative GENERAL: Awake and alert, in no acute distress. SKIN: Focused skin assessment warm/dry. HEAD: Atraumatic. Normocephalic. EYES: Pupils equal and round. No scleral icterus. Extraocular movements intact. ENT: Mucous membranes pink and moist. NECK: Trachea midline. No JVD. No meningeal signs. CARDIOVASCULAR: Regular rate and rhythm. No murmur appreciated. RESPIRATORY: No accessory muscle use. Clear to auscultation. Breath sounds equal bilaterally. GASTROINTESTINAL: Abdomen soft, non-tender, nondistended. MUSCULOSKELETAL: No obvious deformities. No clubbing. No cyanosis. No edema. NEUROLOGICAL: Awake and alert. No obvious cranial nerve deficits. Motor grossly within normal limits. Normal speech. PSYCHIATRIC: Appropriate mood and affect; insight and judgment normal. Data Data Last Documented VS Vital Signs Date Time Temp Pulse Resp B/P (MAP) Pulse Ox O2 Delivery O2 Flow Rate FiO2 06/21/17 23:51 98.2 92 16 135/74 (94) 97 Room Air Orders Orders Complete Blood Count With Diff (06/22/17 00:59) Alcohol (Ethanol) (06/22/17 00:59) Drug Screen, Random Urine (06/22/17 00:59) Blood Glucose (06/22/17 00:59) Ecg Monitoring (06/22/17 00:59) Iv Access Insert/Monitor (06/22/17 00:59) Oximetry (06/22/17 00:59) Comprehensive Metabolic Panel (06/22/17 00:59) Sodium Chlor 0.9% 1000 Ml Inj (Ns 1000 M (06/22/17 00:59) Sodium Chloride 0.9% Flush (Ns Flush) (06/22/17 01:00) Ct Brain W/O Iv Contrast(Rout) (06/22/17 ) Chlordiazepoxide (Librium) (06/22/17 01:00) Ondansetron Inj (Zofran Inj) (06/22/17 01:00) Basic Metabolic Panel (Bmp) (06/22/17 02:26) Sodium Chlor 0.9% 1000 Ml Inj (Ns 1000 M (06/22/17 04:00) Ibuprofen (Motrin) (06/22/17 04:00) Labs Laboratory Tests Test 06/22/17 00:05 06/22/17 01:15 06/22/17 02:30 White Blood Count 14.9 TH/MM3 Red Blood Count 4.81 MIL/MM3 Hemoglobin 15.9 GM/DL Hematocrit 45.7 % Mean Corpuscular Volume 95.0 FL Mean Corpuscular Hemoglobin 33.0 PG Mean Corpuscular Hemoglobin Concent 34.7 % Red Cell Distribution Width 13.1 % Platelet Count 213 TH/MM3 Mean Platelet Volume 8.7 FL Neutrophils (%) (Auto) 87.2 % Lymphocytes (%) (Auto) 5.5 % Monocytes (%) (Auto) 7.3 % Eosinophils (%) (Auto) 0.0 % Basophils (%) (Auto) 0.0 % Neutrophils # (Auto) 13.0 TH/MM3 Lymphocytes # (Auto) 0.8 TH/MM3 Monocytes # (Auto) 1.1 TH/MM3 Eosinophils # (Auto) 0.0 TH/MM3 Basophils # (Auto) 0.0 TH/MM3 CBC Comment DIFF FINAL Differential Comment Blood Urea Nitrogen 9 MG/DL 9 MG/DL Creatinine 0.92 MG/DL 0.74 MG/DL Random Glucose 72 MG/DL 71 MG/DL Total Protein 9.0 GM/DL Albumin 5.0 GM/DL Calcium Level 9.8 MG/DL 8.5 MG/DL Alkaline Phosphatase 52 U/L Aspartate Amino Transf (AST/SGOT) 58 U/L Alanine Aminotransferase (ALT/SGPT) 35 U/L Total Bilirubin 1.1 MG/DL Sodium Level 131 MEQ/L 133 MEQ/L Potassium Level 3.9 MEQ/L 3.8 MEQ/L Chloride Level 92 MEQ/L 97 MEQ/L Carbon Dioxide Level 19.1 MEQ/L 19.1 MEQ/L Anion Gap 20 MEQ/L 17 MEQ/L Estimat Glomerular Filtration Rate 100 ML/MIN 129 ML/MIN Ethyl Alcohol Level LESS THAN 3 MG/DL Urine Opiates Screen NEG Urine Barbiturates Screen NEG Urine Amphetamines Screen NEG Urine Benzodiazepines Screen NEG Urine Cocaine Screen NEG Urine Cannabinoids Screen POS MDM Medical Decision Making Medical Screen Exam Complete: Yes Emergency Medical Condition: Yes Medical Record Reviewed: Yes Differential Diagnosis Seizure versus alcohol withdrawal versus dehydration versus electrolyte abnormality Narrative Course Patient is a 26-year-old male who comes in after seizure this afternoon. Exam shows no neurologic abnormalities. IV established, labs sent. Labs show evidence of dehydration. Patient given [address] head performed shows no acute abnormalities. Reports feeling better after fluids. He was also given a dose of Librium. He has no signs of alcohol withdrawal currently. He is advised follow-up with neurology. Mandatory referral placed. Advised drink plenty of fluids. Advised to seek help in detox. Advised to return as needed for any worsening symptoms. Diagnosis Primary Impression: Seizure Additional Impression: Dehydration Referrals: Nikhil Cervantes PhD MD call for appointment Patient Instructions: Dehydration (ED), General Instructions, Generalized Tonic Clonic Seizures (ED) Additional Instructions: Drink plenty of fluids. Follow-up with neurology. Return to the ED as needed for any worsening symptoms. Scripts No Active Prescriptions or Reported Meds Disposition: 01 DISCHARGE HOME Condition: Stable Gladis Starkey MD Jun 22, 2017 04:34
== END 2017-06-22 05:14 | disposition home or self-care (01) ==
LOC: NEPC 23:49
DX: R56.9 Unspecified convulsions (principal); E86.0 Dehydration; R11.2 Nausea with vomiting, unspecified; F17.200 Nicotine dependence, unspecified, uncomplicated
CPT/HCPCS: 70450; 80053; 80307; 85025; 96361; 96374; 99285; J2405; J7030; 80048

== ENCOUNTER 2017-07-19 17:30 | Emergency (ER) | payer SELFPAY ==
[~2017-07-19] VITALS: Ht 188 cm; Wt 81.5 kg
[2017-07-19 17:31] VITALS: BP 135/75; PULSE 86; RESP 18; TEMP 98.2; O2SAT 96
[2017-07-19] MEDS ORDERED: SODIUM CHLOR 0.9% 1000 ML INJ 1,000 ML IV ONE (17:46)
[2017-07-19] MEDS ORDERED: chlordiazePOXIDE 25 MG CAP PO ONE ×2 (18:00→21:00)
[2017-07-19] MEDS ORDERED: ONDANSETRON HCL 4 MG/2 ML VIAL IV PUSH ONE (18:00)
[2017-07-19] MEDS ORDERED: SODIUM CHLORIDE 0.9% FLUSH 10 ML FLUSH IVF PRN (18:00)
[2017-07-19 18:02] VITALS: BP 138/75; PULSE 69; RESP 19; O2SAT 100
[2017-07-19 18:05] VITALS: BP 138/75; PULSE 65; RESP 19; O2SAT 100
--- NOTE | 2017-07-19 18:09 | PD ---
HPI Chief Complaint: Seizure Time Seen by Provider: 17:46 Travel History International Travel<30 days: No Contact w/Intl Traveler<30days: No Traveled to known affect area: No History of Present Illness HPI 26-year-old male with PMH of chronic alcoholism presents to the ED via private car for evaluation after witnessed seizure approximately 30 minutes before arrival. The patient states that he was working, begin to feel "out of it" and sat down. He states the next thing he remembers he was lying on the ground, opened his eyes to be surrounded by printer machine and his mother. He states that friends on scene reported that he began to stiffen and shake and was lowered to the ground without hitting his head. Patient endorses to previous seizures. He has had neurological follow-up. He endorses drinking 18 beers daily since the age of 22. He states that he gave up hard liquor months ago secondary to a previous seizure. On presentation he endorses nausea and muscular pain in the bilateral anterior legs and lower back. He denies headache, dizziness, blurred vision, difficulties with word finding, chest pain, palpitations, shortness of breath, abdominal pain, vomiting, dysuria. He states that his last meal was at breakfast and this is his usual routine. PFSH Past Medical History Autoimmune Disease: No Cancer: No Cardiovascular Problems: Yes Cerebrovascular Accident: No Diminished Hearing: No Endocrine: No Gastrointestinal Disorders: Yes Genitourinary: No Immune Disorder: No Implanted Vascular Access Dvce: No Musculoskeletal: No Neurologic: Yes (head injuiry from previous trauma x2) Psychiatric: No Reproductive: No Respiratory: Yes Immunizations Current: Yes Seizures: Yes (2X) Past Surgical History Abdominal Surgery: No Cardiac Surgery: No Ear Surgery: No Endocrine Surgery: No Eye Surgery: No Gynecologic Surgery: No Neurologic Surgery: No Oral Surgery: No Thoracic Surgery: No Other Surgery: Yes (FACIAL SURGERY) Social History Alcohol Use: Yes (1/2 GALLON DAILY) Tobacco Use: Yes (<1 PPD) Substance Use: Yes (MARIJUANA, ALCOHOL) Allergies-Medications (Allergen,Severity, Reaction): Coded Allergies: No Known Allergies (Verified , 06/22/17) Reported Meds & Prescriptions Reported Meds & Active Scripts Active Ativan (Lorazepam) 1 Mg Tab 1 Mg PO DIRECTED PRN 1 mg 3 times a day 2 days. 1 mg twice a day 2 days. 1 mg daily x 2 days Review of Systems Except as stated in HPI: all other systems reviewed are Neg Physical Exam Narrative GENERAL: Well-nourished, well-developed pleasant and cooperative white male in no acute distress. SKIN: Focused skin assessment warm/dry. HEAD: Normocephalic. Atraumatic. EYES: No scleral icterus. No injection or drainage. PERRLA. EOMI. NECK: Supple, trachea midline. No JVD or lymphadenopathy. CARDIOVASCULAR: Regular rate and rhythm without murmurs, gallops, or rubs. RESPIRATORY: Breath sounds clear and equal bilaterally. No accessory muscle use. GASTROINTESTINAL: Abdomen soft, non-tender, nondistended. Active bowel sounds MUSCULOSKELETAL: No cyanosis, or edema. NEUROLOGICAL: Awake and alert. Cranial nerves II through XII intact. Motor and sensory grossly within normal limits. Five out of 5 muscle strength in all muscle groups. Normal speech. BACK: Nontender without obvious deformity. No CVA tenderness. Data Data Last Documented VS Vital Signs Date Time Temp Pulse Resp B/P (MAP) Pulse Ox O2 Delivery O2 Flow Rate FiO2 07/19/17 21:14 80 16 140/72 (94) 100 Room Air 07/19/17 17:31 98.2 Orders Orders Complete Blood Count With Diff (07/19/17 17:46) Alcohol (Ethanol) (07/19/17 17:46) Drug Screen, Random Urine (07/19/17 17:46) Electrocardiogram (07/19/17 ) Ct Brain W/O Iv Contrast(Rout) (07/19/17 ) Blood Glucose (07/19/17 17:46) Ecg Monitoring (07/19/17 17:46) Iv Access Insert/Monitor (07/19/17 17:46) Oximetry (07/19/17 17:46) Comprehensive Metabolic Panel (07/19/17 17:46) Sodium Chlor 0.9% 1000 Ml Inj (Ns 1000 M (07/19/17 17:46) Sodium Chloride 0.9% Flush (Ns Flush) (07/19/17 18:00) Ua Includes Microscopic (07/19/17 17:46) Ondansetron Inj (Zofran Inj) (07/19/17 18:00) Chlordiazepoxide (Librium) (07/19/17 18:00) Mandatory Outpatient Referral (07/19/17 20:49) Ed Discharge Order (07/19/17 20:52) Chlordiazepoxide (Librium) (07/19/17 21:00) Acetaminophen (Tylenol) (07/19/17 21:00) Labs Laboratory Tests Test 07/19/17 18:06 07/19/17 19:30 White Blood Count 5.7 TH/MM3 Red Blood Count 4.28 MIL/MM3 Hemoglobin 14.4 GM/DL Hematocrit 40.9 % Mean Corpuscular Volume 95.4 FL Mean Corpuscular Hemoglobin 33.7 PG Mean Corpuscular Hemoglobin Concent 35.3 % Red Cell Distribution Width 12.9 % Platelet Count 143 TH/MM3 Mean Platelet Volume 8.7 FL Neutrophils (%) (Auto) 75.2 % Lymphocytes (%) (Auto) 15.8 % Monocytes (%) (Auto) 8.0 % Eosinophils (%) (Auto) 0.7 % Basophils (%) (Auto) 0.3 % Neutrophils # (Auto) 4.3 TH/MM3 Lymphocytes # (Auto) 0.9 TH/MM3 Monocytes # (Auto) 0.5 TH/MM3 Eosinophils # (Auto) 0.0 TH/MM3 Basophils # (Auto) 0.0 TH/MM3 CBC Comment DIFF FINAL Differential Comment Blood Urea Nitrogen 15 MG/DL Creatinine 0.86 MG/DL Random Glucose 99 MG/DL Total Protein 7.5 GM/DL Albumin 4.2 GM/DL Calcium Level 9.1 MG/DL Alkaline Phosphatase 58 U/L Aspartate Amino Transf (AST/SGOT) 41 U/L Alanine Aminotransferase (ALT/SGPT) 38 U/L Total Bilirubin 0.9 MG/DL Sodium Level 135 MEQ/L Potassium Level 3.8 MEQ/L Chloride Level 99 MEQ/L Carbon Dioxide Level 23.0 MEQ/L Anion Gap 13 MEQ/L Estimat Glomerular Filtration Rate 108 ML/MIN Ethyl Alcohol Level LESS THAN 3 MG/DL Urine Color COLORLESS Urine Turbidity CLEAR Urine pH 5.0 Urine Specific [place] 1.001 Urine Protein NEG mg/dL Urine Glucose (UA) NEG mg/dL Urine Ketones 10 mg/dL Urine Occult Blood NEG Urine Nitrite NEG Urine Bilirubin NEG Urine Urobilinogen LESS THAN 2.0 MG/DL Urine Leukocyte Esterase NEG Urine RBC LESS THAN 1 /hpf Urine Opiates Screen NEG Urine Barbiturates Screen NEG Urine Amphetamines Screen NEG Urine Benzodiazepines Screen NEG Urine Cocaine Screen NEG Urine Cannabinoids Screen NEG MDM Medical Decision Making Medical Screen Exam Complete: Yes Emergency Medical Condition: Yes Differential Diagnosis Alcohol withdrawal seizure versus hypoglycemia versus metabolic derangement versus other Narrative Course 26-year-old male with PMH of chronic alcoholism presents to the ED via private car for evaluation after witnessed seizure approximately 30 minutes before arrival. Patient endorses 2 previous seizures. He has not had neurological follow-up. He endorses drinking 18 beers daily since the age of 22. On presentation he endorses nausea and muscular pain in the bilateral anterior legs and lower back. Patient is not postictal on arrival. No focal neuro deficits. He is noted to walk with a normal gait. Chest CTA B. Abdomen soft and nontender. No lower extremity edema. IV was established. Patient was administered 1 L normal saline IV, [address] by mouth[address] head: No acute intracranial abnormality per radiology read. No concerning abnormalities of the CBC, CMP, UA. Alcohol less than 3. On recheck and is complaining of mild headache and has a slight tremor. He is administered a second dose of 50 mg lithium. He refused Tylenol. He is provided a packet of outpatient resources and a prescription for a brief Librium taper. A mandatory outpatient follow-up was placed with neurology. I explained the mandatory consult process with the patient. He is instructed to follow-up, seek outpatient treatment for his chronic alcoholism, return to the ED as needed. Patient and his mother indicated understanding of instructions and are agreeable to the care plan. The patient is stable and discharged home. Diagnosis Primary Impression: Alcohol use disorder Additional Impression: Alcohol withdrawal seizure Qualified Codes: F10.230 - Alcohol dependence with withdrawal, uncomplicated Referrals: Rebecca Roberson MD Patient Instructions: Alcohol Withdrawal (ED), General Instructions, Nonepileptic Seizures (ED) Additional Instructions: Rest, hydrate. Return to normal, gentle activity as tolerated. Begin Ativan tomorrow morning as prescribed. Seek outpatient treatment for your chronic alcohol use as discussed. A mandatory consult has been placed on your behalf with the neurologist. You can expect a phone call within one week to schedule an appointment. Return to the ED for worsening symptoms or any urgent or emergent medical condition. Med/Other Pt SpecificInfo: Prescription(s) given Scripts Lorazepam (Ativan) 1 Mg Tab 1 MG PO DIRECTED Y for ANXIETY AND/OR AGITATION, #12 TAB 0 Refills 1 mg 3 times a day 2 days. 1 mg twice a day 2 days. 1 mg daily x 2 days Prov: Héctor Johnson MD 07/19/17 Disposition: 01 DISCHARGE HOME Condition: Stable Mariam Simpson Jul 19, 2017 18:09
[2017-07-19 18:17] LABS: AUTOMATED NEUTROPHIL # 4.3 TH/MM3 (1.8-7.7); BASOPHIL % 0.3 % (0.0-2.0); EOSINOPHIL % 0.7 % (0.0-4.0); HEMATOCRIT 40.9 % (39.0-51.0); HEMO FLAGS DIFF FINAL; LYMPH % 15.8 % (9.0-44.0); LYMPHOCYTE # 0.9 TH/MM3 (1.0-4.8); MEAN CELL VOLUME 95.4 FL (80.0-100.0); MEAN CORPUSCULAR HEMOGLOBIN 33.7 PG (27.0-34.0); MEAN CORPUSCULAR HGB CONC 35.3 % (32.0-36.0); NEUT % 75.2 % (16.0-70.0); PLATELET COUNT 143 TH/MM3 (150-450); RED BLOOD COUNT 4.28 MIL/MM3 (4.50-5.90); RED CELL DISTRIBUTION WIDTH 12.9 % (11.6-17.2); WHITE BLOOD COUNT 5.7 TH/MM3 (4.0-11.0)
[2017-07-19 18:33] LABS: ALT (GPT) 38 U/L (12-78); ANION GAP 13 MEQ/L (5-15); AST (GOT) 41 U/L (15-37); BLOOD UREA NITROGEN 15 MG/DL (7-18); CHLORIDE 99 MEQ/L (98-107); GLOMERULAR FILTRATION RATE 108 ML/MIN (>89); POTASSIUM 3.8 MEQ/L (3.5-5.1); SODIUM (NA) 135 MEQ/L (136-145)
[2017-07-19 18:35] LABS: ALKALINE PHOSPHATASE 58 U/L (45-117); TOTAL BILIRUBIN ADULT 0.9 MG/DL (0.2-1.0)
[2017-07-19 18:40] LABS: ALCOHOL LESS THAN 3 MG/DL (0-5)
--- NOTE | 2017-07-19 18:44 | RADRPT ---
EXAM DATE/TIME: 07/19/2017 18:19 [facility] COMPARISON: CT BRAIN W/O CONTRAST, June 22, 2017, 1:04. INDICATIONS : Dizziness, seizures. RADIATION DOSE: 35.67 CTDIvol (mGy) MEDICAL HISTORY : Seizures. SURGICAL HISTORY : None. ENCOUNTER: Initial ACUITY: 1 day PAIN SCALE: 0/10 LOCATION: cranial TECHNIQUE: Multiple contiguous axial images were obtained of the head. Using automated exposure control and adj ustment of the mA and/or kV according to patient size, radiation dose was kept as low as reasonably a chievable to obtain optimal diagnostic quality images. DICOM format image data is available electro nically for review and comparison. FINDINGS: CEREBRUM: The ventricles are normal for age. No evidence of midline shift, mass lesion, hemorrhage or acute in farction. No extra-axial fluid collections are seen. POSTERIOR FOSSA: The cerebellum and brainstem are intact. The 4th ventricle is midline. The cerebellopontine angle i s unremarkable. EXTRACRANIAL: The visualized portion of the orbits is intact. There is focal mucosal disease at the maxillary sinus es bilaterally. There is surgical hardware seen around the right orbital region. SKULL: The calvaria is intact. No evidence of skull fracture. CONCLUSION: 1. No acute intracranial abnormalities seen. 2. Surgical hardware from prior surgical repair for fractures at the right orbit. 3. Mild maxillary sinus disease. Indra Rodriguez MD on July 19, 2017 at 18:40 Board Certified Radiologist. This report was verified electronically.
[2017-07-19 19:51] LABS: BLOOD, URINE NEG (NEG); GLUCOSE,URINE NEG (NEG); KETONE, URINE 10 mg/dL (NEG); NITRITE,URINE NEG (NEG); URINE COLOR COLORLESS (YELLW/STRAW)
[2017-07-19] MEDS ORDERED: LORA-474 PO (20:52)
[2017-07-19] MEDS ORDERED: ACETAMINOPHEN 500 MG CPLT PO ONE (21:00)
[2017-07-19 21:14] VITALS: BP 140/72; PULSE 80; RESP 16; O2SAT 100
--- NOTE | 2017-07-20 17:38 | EKG ---
Date Performed: 07/19/2017 Time Performed: 18:44:28 PTAGE: 26 years EKG: Sinus rhythm NORMAL ECG Since PREVIOUS TRACING , no significant change noted PREVIOUS TRACIN11/04/2016 16.24 DOCTOR: Bruak Rodriguez Interpretating Date/Time 07/20/2017 17:36:35
== END 2017-07-19 21:42 | disposition home or self-care (01) ==
LOC: NEPC 17:30
DX: F10.239 Alcohol dependence with withdrawal, unspecified (principal); R56.9 Unspecified convulsions; R51 Headache; R25.1 Tremor, unspecified; J32.0 Chronic maxillary sinusitis; R11.0 Nausea; F17.200 Nicotine dependence, unspecified, uncomplicated; Z79.899 Other long term (current) drug therapy
CPT/HCPCS: 70450; 80053; 80307; 81001; 85025; 93005; 96361; 96374; 99285; J2405; J7030

== ENCOUNTER 2017-09-12 19:36 | Emergency (ER) | payer SELFPAY ==
[~2017-09-12 19:36] MED LIST changes: -CHLO25CA2 PO; -LEVE500 PO; +LORA-474 PO; -VITA100T2 PO
[2017-09-12 19:47] VITALS: BP 131/60; PULSE 102; RESP 18; TEMP 97.9; O2SAT 98
[2017-09-12] MEDS ORDERED: LORazepam 2 MG/ML VIAL ONE (20:43)
[2017-09-12] MEDS ORDERED: GABA300C5 PO (20:51)
[2017-09-12 20:55] VITALS: BP 131/79; PULSE 73; RESP 18; O2SAT 99
[2017-09-12] MEDS ORDERED: levETIRAcetam INJ 100 ML IV ONE (21:00)
[2017-09-12] MEDS ORDERED: LORazepam 2 MG/ML VIAL IV PUSH ONE (21:00)
[2017-09-12 21:20] LABS: AUTOMATED NEUTROPHIL # 6.2 TH/MM3 (1.8-7.7); BASOPHIL % 0.1 % (0.0-2.0); EOSINOPHIL % 0.3 % (0.0-4.0); HEMATOCRIT 39.8 % (39.0-51.0); HEMOGLOBIN 13.9 GM/DL (13.0-17.0); LYMPH % 9.1 % (9.0-44.0); LYMPHOCYTE # 0.7 TH/MM3 (1.0-4.8); MEAN CELL VOLUME 93.9 FL (80.0-100.0); MEAN CORPUSCULAR HEMOGLOBIN 32.7 PG (27.0-34.0); MEAN CORPUSCULAR HGB CONC 34.9 % (32.0-36.0); MEAN PLATELET VOLUME 8.2 FL (7.0-11.0); MONO % 9.4 % (0.0-8.0); MONOCYTE # 0.7 TH/MM3 (0-0.9); NEUT % 81.1 % (16.0-70.0); PLATELET COUNT 158 TH/MM3 (150-450); RED BLOOD COUNT 4.24 MIL/MM3 (4.50-5.90); RED CELL DISTRIBUTION WIDTH 12.3 % (11.6-17.2); WHITE BLOOD COUNT 7.7 TH/MM3 (4.0-11.0)
[2017-09-12 21:41] LABS: ALT (GPT) 33 U/L (12-78); AST (GOT) 35 U/L (15-37); BICARBONATE 27.3 MEQ/L (21.0-32.0); BLOOD UREA NITROGEN 11 MG/DL (7-18); CALCIUM 9.1 MG/DL (8.5-10.1); CHLORIDE 98 MEQ/L (98-107); CREATININE 0.82 MG/DL (0.60-1.30); GLOMERULAR FILTRATION RATE 114 ML/MIN (>89); GLUCOSE,RANDOM 93 MG/DL (74-106); SODIUM (NA) 134 MEQ/L (136-145)
[2017-09-12 21:44] LABS: ALKALINE PHOSPHATASE 49 U/L (45-117); TOTAL BILIRUBIN ADULT 0.7 MG/DL (0.2-1.0); TOTAL PROTEIN 7.4 GM/DL (6.4-8.2)
--- NOTE | 2017-09-12 22:01 | PD ---
HPI Chief Complaint: Seizure Time Seen by Provider: 20:34 Travel History International Travel<30 days: No Contact w/Intl Traveler<30days: No Traveled to known affect area: No History of Present Illness HPI This is a 26-year-old male who has a history of alcoholism who presents to the emergency department because he had a seizure. The seizure was witnessed by his father. It lasted for 3 minutes and then sided. His symptoms were constant , described as shaking all over and he did not bite his tongue or lose his bowels or bladder. He did not hit his head and he was sitting on the couch at the time of the seizure. Patient has had 4 seizures this year. Usually it's in the setting of cutting back on alcohol. He was hospitalized for seizures in November and neurology started him on Keppra but currently he is only taking gabapentin. He has had a traumatic brain injury in the past year as well. PFSH Past Medical History Autoimmune Disease: No Cancer: No Cardiovascular Problems: Yes Cerebrovascular Accident: No Diminished Hearing: No Endocrine: No Gastrointestinal Disorders: Yes Genitourinary: No Immune Disorder: No Implanted Vascular Access Dvce: No Musculoskeletal: No Neurologic: Yes (head injuiry from previous trauma x2) Psychiatric: No Reproductive: No Respiratory: Yes Immunizations Current: Yes Seizures: Yes (2X) ?: Not Past Surgical History Abdominal Surgery: No Cardiac Surgery: No Ear Surgery: No Endocrine Surgery: No Eye Surgery: No Gynecologic Surgery: No Neurologic Surgery: No Oral Surgery: No Thoracic Surgery: No Other Surgery: Yes (FACIAL SURGERY) Social History Alcohol Use: Yes (1/2 GALLON DAILY) Tobacco Use: Yes (<1 PPD) Substance Use: Yes (MARIJUANA, ALCOHOL) Allergies-Medications (Allergen,Severity, Reaction): Coded Allergies: No Known Allergies (Verified Adverse Reaction, Unknown, 09/12/17) Reported Meds & Prescriptions Reported Meds & Active Scripts Active Reported Gabapentin 300 Mg Cap 300 Mg PO BID Review of Systems Except as stated in HPI: all other systems reviewed are Neg Physical Exam Narrative GENERAL:Well appearing, no acute distress SKIN: Focused skin assessment warm and dry. HEAD: Atraumatic. Normocephalic. EYES: Pupils equal and round. No injection or drainage. ENT: Moist mucous membranes NECK: Trachea midline. CARDIOVASCULAR: Regular rate and rhythm. No murmur appreciated. RESPIRATORY: Clear to auscultation. Breath sounds equal bilaterally. GASTROINTESTINAL: Abdomen soft, non-tender, nondistended. MUSCULOSKELETAL: No obvious deformities. NEUROLOGICAL: Awake and alert. No obvious cranial nerve deficits. Moving all extremities. PSYCHIATRIC: Appropriate mood and affect; insight and judgment normal. Data Data Last Documented VS Vital Signs Date Time Temp Pulse Resp B/P (MAP) Pulse Ox O2 Delivery O2 Flow Rate FiO2 09/12/17 20:55 73 18 131/79 (96) 99 Nasal Cannula 2.00 09/12/17 19:47 97.9 Orders Orders Lorazepam Inj (Ativan Inj) (09/12/17 20:43) Complete Blood Count With Diff (09/12/17 20:47) Comprehensive Metabolic Panel (09/12/17 20:47) Lorazepam Inj (Ativan Inj) (09/12/17 21:00) Levetiracetam Inj (Keppra Inj) (09/12/17 21:00) Labs Laboratory Tests Test 09/12/17 21:00 White Blood Count 7.7 TH/MM3 Red Blood Count 4.24 MIL/MM3 Hemoglobin 13.9 GM/DL Hematocrit 39.8 % Mean Corpuscular Volume 93.9 FL Mean Corpuscular Hemoglobin 32.7 PG Mean Corpuscular Hemoglobin Concent 34.9 % Red Cell Distribution Width 12.3 % Platelet Count 158 TH/MM3 Mean Platelet Volume 8.2 FL Neutrophils (%) (Auto) 81.1 % Lymphocytes (%) (Auto) 9.1 % Monocytes (%) (Auto) 9.4 % Eosinophils (%) (Auto) 0.3 % Basophils (%) (Auto) 0.1 % Neutrophils # (Auto) 6.2 TH/MM3 Lymphocytes # (Auto) 0.7 TH/MM3 Monocytes # (Auto) 0.7 TH/MM3 Eosinophils # (Auto) 0.0 TH/MM3 Basophils # (Auto) 0.0 TH/MM3 CBC Comment DIFF FINAL Differential Comment Blood Urea Nitrogen 11 MG/DL Creatinine 0.82 MG/DL Random Glucose 93 MG/DL Total Protein 7.4 GM/DL Albumin 4.0 GM/DL Calcium Level 9.1 MG/DL Alkaline Phosphatase 49 U/L Aspartate Amino Transf (AST/SGOT) 35 U/L Alanine Aminotransferase (ALT/SGPT) 33 U/L Total Bilirubin 0.7 MG/DL Sodium Level 134 MEQ/L Potassium Level 3.6 MEQ/L Chloride Level 98 MEQ/L Carbon Dioxide Level 27.3 MEQ/L Anion Gap 9 MEQ/L Estimat Glomerular Filtration Rate 114 ML/MIN MDM Medical Decision Making Medical Screen Exam Complete: Yes Emergency Medical Condition: Yes Interpretation(s) No leukocytosis Electrolytes are reassuring Differential Diagnosis Alcohol withdrawal seizure, seizure due to traumatic brain injury, electrolyte abnormality Narrative Course This is a 26-year-old male who presents to the emergency department having had a seizure in the setting of cutting back on alcohol. He has a history of seizures. He was admitted earlier this year and started on Keppra by neurology but is no longer taking it. He has expressed an interest in detox. Here in the emergency department he was given IV Ativan and IV Keppra. Labs are obtained which were reassuring. I had a long conversation with him and his mother regarding outpatient psychiatric resources. He'll be discharged on Keppra as well as Librium Diagnosis Primary Impression: Seizure Patient Instructions: General Instructions Additional Instructions: Follow up with Alphonse Jiang in regards to psychiatric or substance related issues at: [address] [place] [address] Med/Other Pt SpecificInfo: Prescription(s) given Scripts Chlordiazepoxide HCl (Chlordiazepoxide HCl) 25 Mg Capsule 1 TAB PO Q6HR Y for ANXIETY, #15 Prov: Suad Verma MD 09/12/17 Levetiracetam (Keppra) 500 Mg Tab 500 MG PO BID for Control Seizures, #60 TAB 0 Refills Prov: Suad Verma MD 09/12/17 Disposition: 01 DISCHARGE HOME Condition: Stable Suad Verma MD Sep 12, 2017 22:01
[2017-09-12] MEDS ORDERED: LEVE500 PO (22:04)
[2017-09-12] MEDS ORDERED: CHLO25CA9 PO (22:04)
== END 2017-09-12 22:41 | disposition home or self-care (01) ==
LOC: NEPD 19:36
DX: R56.9 Unspecified convulsions (principal); F17.210 Nicotine dependence, cigarettes, uncomplicated; F12.90 Cannabis use, unspecified, uncomplicated; Z87.820 Personal history of traumatic brain injury; F10.20 Alcohol dependence, uncomplicated
CPT/HCPCS: 80053; 85025; 96374; 96375; 99284; J1953; J2060

== ENCOUNTER 2017-11-02 17:02 | Emergency (ER) | payer SELFPAY ==
[~2017-11-02] VITALS: Ht 188 cm; Wt 82.0 kg
[~2017-11-02 17:02] MED LIST changes: +CHLO25CA9 PO; +GABA300C5 PO; +LEVE500 PO; -LORA-474 PO
[2017-11-02 17:26] VITALS: BP 130/74; PULSE 89; RESP 16; TEMP 98.6; O2SAT 99
[2017-11-02 18:58] LABS: BICARBONATE 25.5 MEQ/L (21.0-32.0); CALCIUM 8.8 MG/DL (8.5-10.1); CREATININE 0.72 MG/DL (0.60-1.30)
[2017-11-02] MEDS ORDERED: levETIRAcetam 500 MG TAB PO ONE (19:15)
[2017-11-02 19:23] LABS: HEMATOCRIT 40.2 % (39.0-51.0); MEAN CELL VOLUME 96.5 FL (80.0-100.0); MEAN CORPUSCULAR HEMOGLOBIN 33.6 PG (27.0-34.0); MEAN CORPUSCULAR HGB CONC 34.8 % (32.0-36.0); MEAN PLATELET VOLUME 9.2 FL (7.0-11.0); PLATELET COUNT 131 TH/MM3 (150-450); RED BLOOD COUNT 4.16 MIL/MM3 (4.50-5.90); RED CELL DISTRIBUTION WIDTH 13.8 % (11.6-17.2); WHITE BLOOD COUNT 4.6 TH/MM3 (4.0-11.0)
--- NOTE | 2017-11-02 19:26 | PD ---
HPI Chief Complaint: Seizure Time Seen by Provider: 19:10 Travel History International Travel<30 days: No Contact w/Intl Traveler<30days: No Traveled to known affect area: No History of Present Illness HPI 27-year-old male here for evaluation after having had a seizure while at work today. The patient has history of seizures after traumatic brain injury as well as alcohol withdrawal seizures. He drinks about 10-15 beers daily usually after work. He states his last alcoholic drink was this morning before work. He did not bite his tongue or become incontinent of urine. He complains of a moderate diffuse headache. He does not believe he injured himself during the seizure. No fevers or recent illness. He is complaining of diffuse muscle aches. Reports he is compliant with Keppra, however he has not had it in the last 2 days. PFS Past Medical History Autoimmune Disease: No Cancer: No Cardiovascular Problems: Yes Cerebrovascular Accident: No Diminished Hearing: No Endocrine: No Gastrointestinal Disorders: Yes Genitourinary: No Immune Disorder: No Implanted Vascular Access Dvce: No Musculoskeletal: No Neurologic: Yes (head injuiry from previous trauma x2) Psychiatric: No Reproductive: No Respiratory: Yes Immunizations Current: Yes Seizures: Yes (2X) Past Surgical History Abdominal Surgery: No Cardiac Surgery: No Ear Surgery: No Endocrine Surgery: No Eye Surgery: No Gynecologic Surgery: No Neurologic Surgery: No Oral Surgery: No Thoracic Surgery: No Other Surgery: Yes (FACIAL SURGERY; PLATES AND PINS) Social History Alcohol Use: Yes (12-13 BEERS DAILY) Tobacco Use: Yes (1 PACK WHEN HE DOES SMOKE) Substance Use: No Allergies-Medications (Allergen,Severity, Reaction): Coded Allergies: No Known Allergies (Verified Adverse Reaction, Unknown, 11/02/17) Reported Meds & Prescriptions Reported Meds & Active Scripts Active Keppra (Levetiracetam) 500 Mg Tab 500 Mg PO BID Review of Systems Except as stated in HPI: all other systems reviewed are Neg Physical Exam Narrative GENERAL: Well-developed, well-nourished, awake, alert, GCS 15, no apparent distress. SKIN: Focused skin assessment warm/dry. HEAD: Atraumatic. Normocephalic. EYES: Pupils equal, round, 3 mm, reactive to light. EOMI. No scleral icterus. No injection or drainage. ENT: Mucous membranes pink and moist. NECK: Trachea midline. No JVD. CARDIOVASCULAR: Regular rate and rhythm. RESPIRATORY: No accessory muscle use. Clear to auscultation. Breath sounds equal bilaterally. GASTROINTESTINAL: Abdomen soft, non-tender, nondistended. MUSCULOSKELETAL: No obvious deformities. No clubbing. No cyanosis. No edema. NEUROLOGICAL: Awake and alert. No obvious cranial nerve deficits. Motor grossly within normal limits. Normal speech. PSYCHIATRIC: Appropriate mood and affect; insight and judgment normal. Data Data Last Documented VS Vital Signs Date Time Temp Pulse Resp B/P (MAP) Pulse Ox O2 Delivery O2 Flow Rate FiO2 11/02/17 17:26 98.6 89 16 130/74 (92) 99 Orders Orders Basic Metabolic Panel (Bmp) (11/02/17 18:00) Cbc No Diff, Includes Plts (11/02/17 18:00) Alcohol (Ethanol) (11/02/17 19:10) Chlordiazepoxide (Librium) (11/02/17 19:15) Levetiracetam (Keppra) (11/02/17 19:15) Ct Brain W/O Iv Contrast(Rout) (11/02/17 ) Acetaminophen (Tylenol) (11/02/17 19:30) Sodium Chlor 0.9% 1000 Ml Inj (Ns 1000 M (11/02/17 19:30) Labs Laboratory Tests Test 11/02/17 18:00 11/02/17 18:05 White Blood Count 4.6 TH/MM3 Red Blood Count 4.16 MIL/MM3 Hemoglobin 14.0 GM/DL Hematocrit 40.2 % Mean Corpuscular Volume 96.5 FL Mean Corpuscular Hemoglobin 33.6 PG Mean Corpuscular Hemoglobin Concent 34.8 % Red Cell Distribution Width 13.8 % Platelet Count 131 TH/MM3 Mean Platelet Volume 9.2 FL Blood Urea Nitrogen 6 MG/DL Creatinine 0.72 MG/DL Random Glucose 102 MG/DL Calcium Level 8.8 MG/DL Sodium Level 134 MEQ/L Potassium Level 3.4 MEQ/L Chloride Level 99 MEQ/L Carbon Dioxide Level 25.5 MEQ/L Anion Gap 10 MEQ/L Estimat Glomerular Filtration Rate 132 ML/MIN Ethyl Alcohol Level LESS THAN 3 MG/DL MDM Medical Decision Making Medical Screen Exam Complete: Yes Emergency Medical Condition: Yes Medical Record Reviewed: Yes Differential Diagnosis Breakthrough seizure, alcohol withdrawal seizure, medication noncompliance, intracranial abnormality, metabolic abnormality Narrative Course Vital signs show heart rate 89, blood pressure 130/74, pulse ox 99% on room air , oral temp 98.6F. CBC is unremarkable. BMP is unremarkable. Alcohol level CT head: No acute intracranial abnormality. The patient is resting comfortably. He is not displaying any signs or symptoms of alcohol withdrawal such as tremulousness or tongue fasciculations. He prefers to be discharged home. I will give him a prescription for Librium. He states he has enough Keppra at home. PMD follow-up this week. He was advised on when to return to the emergency department. He verbalizes understanding and agreement with plan. Diagnosis Primary Impression: Seizure Referrals: Primary Care Physician 3 days Additional Instructions: Follow-up with a primary care physician this week. Take Keppra as prescribed. Return to the emergency department for worsening symptoms or any other concerns. Scripts Chlordiazepoxide HCl (Chlordiazepoxide HCl) 10 Mg Capsule 1 CAP PO TID, #15 Prov: Phil Jay MD 11/02/17 Disposition: 01 DISCHARGE HOME Condition: Stable Phil Jay MD Nov 02, 2017 19:26
[2017-11-02] MEDS ORDERED: SODIUM CHLOR 0.9% 1000 ML INJ 1,000 ML IV ONE (19:30)
[2017-11-02] MEDS ORDERED: ACETAMINOPHEN 325 MG TAB PO ONE (19:30)
--- NOTE | 2017-11-02 19:45 | RADRPT ---
EXAM DATE/TIME: 11/02/2017 19:25 [facility] COMPARISON: CT BRAIN W/O CONTRAST, July 19, 2017, 18:19. INDICATIONS : Seizure possibly related to alcohol withdrawal. RADIATION DOSE: 56.35 CTDIvol (mGy) MEDICAL HISTORY : Seizures. ETOH abuse SURGICAL HISTORY : None. ENCOUNTER: Initial ACUITY: 1 day PAIN SCALE: 0/10 LOCATION: cranial TECHNIQUE: Multiple contiguous axial images were obtained of the head. Using automated exposure control and adj ustment of the mA and/or kV according to patient size, radiation dose was kept as low as reasonably a chievable to obtain optimal diagnostic quality images. DICOM format image data is available electro nically for review and comparison. FINDINGS: CEREBRUM: The ventricles are normal for age. No evidence of midline shift, mass lesion, hemorrhage or acute in farction. No extra-axial fluid collections are seen. POSTERIOR FOSSA: The cerebellum and brainstem are intact. The 4th ventricle is midline. The cerebellopontine angle i s unremarkable. EXTRACRANIAL: Surgical hardware is again noted in the region of the right orbit and maxillary sinus status post fra cture repair. SKULL: The calvaria is intact. No evidence of skull fracture. CONCLUSION: No acute intracranial abnormality. Héctor Philippe MD on November 02, 2017 at 19:43 Board Certified Radiologist. This report was verified electronically.
[2017-11-02] MEDS ORDERED: CHLO10CA5 PO (20:27)
== END 2017-11-02 20:55 | disposition home or self-care (01) ==
LOC: NEDAMB 17:02 → NEPE 20:55
DX: R56.9 Unspecified convulsions (principal); Z72.0 Tobacco use
CPT/HCPCS: 70450; 80048; 80307; 85027; 99284; J7030